=== PATIENT | male | born 1960 | race Caucasian/White ===

== ENCOUNTER 2018-04-01 11:42 | Outpatient (CLI) | payer OTHER | END 2018-04-01 11:43 | disposition home or self-care (01) | LOC: BICRAD 11:42 | PROVIDERS: ATTEND Internal Medicine | DX: Z02.71 Encounter for disability determination (principal); M16.11 Unilateral primary osteoarthritis, right hip ==

== ENCOUNTER 2018-04-23 07:52 | Emergency (ER) | payer OTHER, SELFPAY ==
[2018-04-23] MEDS ORDERED: Diazepam 5 MG TAB ONE (08:39)
[2018-04-23] MEDS ORDERED: Naproxen 500 MG TAB ONE (08:39)
[2018-04-23] MEDS ORDERED: Lidocaine 1% (PF) 30 ML VIAL ONE (09:17)
--- NOTE | 2018-04-23 09:28 | RAD ---
LEFT SHOULDER THREE VIEWS: HISTORY: Shoulder pain. COMPARISON: None. FINDINGS: No acute displaced fracture or malalignment. Mild degenerative disease of the acromioclavicular join t. The soft tissues are unremarkable. IMPRESSION: No acute abnormality. POS: [facility]
== END 2018-04-23 09:56 | disposition home or self-care (01) ==
LOC: ERS 07:52
DX: M25.512 Pain in left shoulder (principal); F17.210 Nicotine dependence, cigarettes, uncomplicated
CPT/HCPCS: 20552; J2001

== ENCOUNTER 2019-01-24 08:35 | Emergency (ER) | payer OTHER ==
[2019-01-24] MEDS ORDERED: Ciprofloxacin 500 MG TAB ONE (10:48)
[2019-01-24] MEDS ORDERED: Ondansetron PF 4 MG/2 ML Vial ONE (10:48)
[2019-01-24] MEDS ORDERED: metroNIDAZOLE 500 MG/100 ML BAG ONE (10:49)
[2019-01-24 10:59] LABS: #Lymphocytes 1.5 thou/uL (1.20-3.40); %Basophils 0.1 % (0.0-1.0); %Eosinophils 0.1 % (0.0-10.0); %Monocytes 13.6 % (0.0-10.0); %Neutrophils 76.1 % (42.0-75.0); Mean Corpuscular HGB CONC 34.4 g/dL (32.0-36.0); Mean Corpuscular Hemoglobin 31.8 pg (27.0-31.0); Mean Corpuscular Volume 92.5 fL (78.0-98.0); Mean Platelet Volume 8.9 fL (7.4-10.4); Platelet Count 148 thou/uL (130-400); RBC Distribution Width 11.9 % (11.5-14.5); Red Blood Cell (RBC) Count 4.72 mill/uL (4.70-6.10); White Blood Cell (WBC) Count 14.5 thou/uL (4.8-10.8)
[2019-01-24 11:26] LABS: ALT (SGPT) 36 U/L (8-55); AST (SGOT) 85 U/L (5-34); Albumin 3.8 g/dL (3.5-5.0); Alkaline Phosphatase 61 U/L (40-150); Anion Gap 12 mmol/L (10-20); BUN (Urea Nitrogen) 8 mg/dL (8.4-25.7); Bilirubin, Total 1.2 mg/dL (0.2-1.2); Calc. Creatinine Clearance 0 mL/min (70-130); Calcium 8.8 mg/dL (7.8-10.44); Carbon Dioxide 25 mmol/L (22-29); Chloride 93 mmol/L (98-107); Estimated GFR-MDRD 72; Globulin 3.5 g/dL (2.4-3.5); Glucose 109 mg/dL (70-105); Lipase 5 U/L (8-78); Potassium 3.8 mmol/L (3.5-5.1); Protein, Total 7.3 g/dL (6.0-8.3); Sodium 126 mmol/L (136-145)
[2019-01-24 12:03] LABS: Blood, Urine Negative (Negative); Clarity CLEAR (Clear); Glucose, Urine (Dipstick) Negative (Negative); Protein, Urine (Dipstick) 100 mg/dL (Neg-Trace); Specific Gravity, Urine 1.028 (1.002-1.036); Urobilinogen > or = 8.0 mg/dL (0.2-1.0); pH, Urine 5.5 (5.0-9.0)
[2019-01-24 12:06] LABS: Pathc Cast-AUWi Flag 1.22 (0-2.49); RBC/HPF 0-3 HPF (0-3); Squamous Epithelial 0-3 HPF (0-3)
[2019-01-24 12:21] LABS: Bilirubin Unable to Interpret (Negative)
[2019-01-24 12:22] LABS: Leukocyte Unable to Interpret (Negative); Nitrite Unable to Interpret (Negative)
[2019-01-24 12:37] LABS: Bacteria/HPF None Seen HPF (None Seen); Hyaline Casts/LPF 0-3 HYALINE CAST LPF (0-3 Hyaline); Other Casts/LPF 0-3 COARSE GRAN LPF (0-3 Hyaline); WBC/HPF 0-3 HPF (0-3)
--- NOTE | 2019-01-24 13:05 | CT ---
CT ABDOMEN AND PELVIS WITH CONTRAST: HISTORY: Abdominal pain, nausea, vomiting, and diarrhea x5 days, which initially resolved and then returned. FINDINGS: ABDOMEN: There are some reticular interstitial changes in the lung bases. This could be on the basi s of scar versus atelectasis. A small hiatal hernia is noted. There is suggestion of some fatty changes in the liver. The spleen is within normal limits. The pancreas region is unremarkable. The gallbladder is somewhat contracte d. The right and left adrenal glands are normal. Small hypodensities involving the right kidney are too small to characterize, but statistically are most likely cysts. No renal calculi are identified. N o significant periaortic or mesenteric adenopathy. No signs of any bowel obstruction. PELVIS: There is no evidence of any adenopathy, mass, or free fluid. Review of the osseous structures show arthritic change of the spine and hips. IMPRESSION: 1. No acute findings of the abdomen or pelvis. 2. Fatty change of the liver. 3. Small hiatal hernia. POS: [facility]
[2019-01-24] MEDS ORDERED: ISOVUE-370 76%-LOCM 1 ML ONE (16:26)
== END 2019-01-24 12:55 | disposition home or self-care (01) ==
LOC: ERS 08:35
DX: R11.2 Nausea with vomiting, unspecified (principal); R19.7 Diarrhea, unspecified; F17.210 Nicotine dependence, cigarettes, uncomplicated
CPT/HCPCS: 36415; 74177; 80053; 81003; 81015; 83690; 85025; 96365; 96366; 96375; J2405; Q9966

== ENCOUNTER 2019-02-09 22:15 | Inpatient (IN) | payer OTHER ==
[~2019-02-09 22:15] MED LIST: ISOVUE-370 76%-LOCM 1 ML ONE
[2019-02-09] MEDS ORDERED: methylPREDNISolone Sod Succ/PF 125 MG/2 ML VIAL ONE (22:29)
[2019-02-09 22:40] LABS: #Basophils 0.1 thou/uL (0.0-0.2); #Lymphocytes 1.6 thou/uL (1.20-3.40); #Monocytes 1.4 thou/uL (0.11-0.59); %Basophils 0.5 % (0.0-1.0); %Eosinophils 0.1 % (0.0-10.0); %Lymphocytes 11.9 % (21.0-51.0); %Monocytes 10.8 % (0.0-10.0); %Neutrophils 76.8 % (42.0-75.0); Hemoglobin 13.8 g/dL (14.0-18.0); Mean Corpuscular HGB CONC 32.5 g/dL (32.0-36.0); Mean Corpuscular Volume 95.4 fL (78.0-98.0); Mean Platelet Volume 8.3 fL (7.4-10.4); Platelet Count 257 thou/uL (130-400); RBC Distribution Width 12.3 % (11.5-14.5); Red Blood Cell (RBC) Count 4.43 mill/uL (4.70-6.10); White Blood Cell (WBC) Count 13.1 thou/uL (4.8-10.8)
[2019-02-09 23:03] LABS: ALT (SGPT) 17 U/L (8-55); AST (SGOT) 19 U/L (5-34); Albumin 3.6 g/dL (3.5-5.0); Alkaline Phosphatase 59 U/L (40-150); Anion Gap 14 mmol/L (10-20); BUN (Urea Nitrogen) 13 mg/dL (8.4-25.7); Bilirubin, Total 0.9 mg/dL (0.2-1.2); CK (CPK) 145 U/L (30-200); Calc. Creatinine Clearance 0 mL/min (70-130); Calcium 8.9 mg/dL (7.8-10.44); Carbon Dioxide 25 mmol/L (22-29); Chloride 94 mmol/L (98-107); Estimated GFR-MDRD 65; Globulin 4.1 g/dL (2.4-3.5); Glucose 109 mg/dL (70-105); Potassium 4.6 mmol/L (3.5-5.1); Protein, Total 7.7 g/dL (6.0-8.3); Sodium 128 mmol/L (136-145)
[2019-02-09 23:38] LABS: CKMB 0.7 ng/mL (0-6.6)
--- NOTE | 2019-02-09 23:39 | CT ---
CT ANGIOGRAM THORAX WITH IV CONTRAST AND 3-D RECONSTRUCTIONS CLINICAL INDICATION: Shortness of breath. COMPARISON: CT abdomen on 01/24/2019 FINDINGS: Pulmonary arteries: No filling defects are seen in the pulmonary arteries to suggest a pulmonary embo gary. Heart: The heart is normal in size, there is a moderate-sized pericardial effusion and the pericardia l effusion has significantly increased in size compared to study on 01/24/2019. Aorta: The aorta is normal in caliber without evidence of an aortic dissection. Lungs: Moderate size bilateral pleural effusions are seen greater on the left. There is consolidation seen at the left lung base likely attributable to passive atelectasis; although, pneumonia cannot be entirely excluded. Few small blebs are seen within the right lung apex. Mediastinum: There is increased number and size of mediastinal lymph nodes. Largest lymph node seen i n the AP window measures approximately 12 mm in short axis dimension with a few superior right paratracheal mediastinal lymph nodes measuring 11 mm and 10 mm in short axis dimension. Increased num mario of prevascular space lymph nodes are also seen. Soft tissue prominence in each hilar region is also likely related to prominent lymph nodes. A large calcified subcarinal lymph node is present. Thyroid gland: Within normal limits where seen. Osseous structures: Mild degenerative changes are seen in the spine. Chest wall: No abnormality visualized. Upper abdomen: Within normal limits for phase of imaging. IMPRESSION: 1. Moderately large pericardial effusion which has increased in size compared to 01/24/2019. 2. Moderately large bilateral pleural effusions greater on the left with associated bibasilar areas o f consolidation also greater on the left which is probably attributable to passive atelectasis. Pneumonia cannot be entirely excluded. 3. Mediastinal and hilar lymphadenopathy. 4. Above findings discussed with Dr. Arteaga in the emergency department on 01/24/2019 at 1136 hours.
[2019-02-10] MEDS ORDERED: Cefepime 2 GM VIAL ONE (00:15)
[2019-02-10] MEDS ORDERED: Vancomycin HCl 1.5 GM in Sodium Chloride 0.9% 250 ML 300 ML IVPB ONE (00:30)
[2019-02-10 01:11] LABS: Critical Call Chem Troponin I RESULT DECREASING; Troponin I 0.436 ng/mL (< 0.028)
[2019-02-10 02:32] VITALS: BMI 32.5
[2019-02-10] MEDS ORDERED: Acetaminophen 325 MG TAB PO PRN (04:19)
[2019-02-10] MEDS ORDERED: Calcium Carbonate 500 MG ChewTAB PO PRN (04:19)
[2019-02-10] MEDS ORDERED: Senokot S 8.6-50 MG TAB PO PRN (04:19)
[2019-02-10] MEDS ORDERED: Ondansetron PF 4 MG/2 ML Vial IVP PRN (04:19)
[2019-02-10] MEDS ORDERED: Ondansetron ODT 4 MG TAB PO PRN (04:19)
[2019-02-10] MEDS ORDERED: Dextrose 5 % And 0.9 % NaCl 1,000 ML IV SCH (04:30)
[2019-02-10] MEDS ORDERED: Vancomycin HCl 1 GM in Premix Bag 1 BAG IVPB SCH (04:30)
[2019-02-10] MEDS ORDERED: cefTRIAXone\\ROCEPHIN 1 GM in Sodium Chloride 0.9% 100 ML IVPB SCH (05:00)
[2019-02-10] MEDS ORDERED: Diabetic Tussin 200 MG/10 ML UDCUP PO PRN (05:23)
[2019-02-10 05:30] LABS: Anion Gap 15 mmol/L (10-20); BUN (Urea Nitrogen) 13 mg/dL (8.4-25.7); CRP (Inflammatory) 19.88 mg/dL (= or < 0.5); Calc. Creatinine Clearance 133 mL/min (70-130); Calcium 8.6 mg/dL (7.8-10.44); Carbon Dioxide 19 mmol/L (22-29); Chloride 97 mmol/L (98-107); Estimated GFR-MDRD 86; Glucose 135 mg/dL (70-105); Potassium 4.5 mmol/L (3.5-5.1); Sodium 126 mmol/L (136-145)
[2019-02-10 05:46] LABS: HIV (1/2) Antibody/Antigen Non-Reactive (NonReactive)
--- NOTE | 2019-02-10 07:04 | HP ---
PRIMARY CARE PHYSICIAN: [facility]. CHIEF COMPLAINT: Shortness of breath. HISTORY OF PRESENT ILLNESS: The patient is a 58-year-old male with hypothyroidism and more than 50 pack-year smoking history, presented to the emergency room with above complaints. Two weeks ago, the patient presented to the emergency room with nausea, vomiting, and diarrhea of [address] scan of the abdomen and pelvis was negative for acute findings. He was discharged home on ciprofloxacin, Flagyl, and Zofran. His symptoms gradually improved. Over the last 2 weeks or so, the patient has gradual worsening shortness of breath that is progressively getting worse. He also has cough that is productive of small amount of thick phlegm. He gets short of breath on lying down flat. He also noticed bilateral lower extremity swelling. He denies any chest pain, palpitations, or syncope. No recent immobilization or travel reported. He denies significant weight loss. He quit smoking a month ago. Nausea, vomiting, and diarrhea have resolved. In the emergency room, his initial vital signs showed temperature 99.3, respirations of 33, pulse rate of 113, blood pressure of 120/83 with O2 saturation of 90% on room air. His EKG showed sinus tachycardia with nonspecific ST-T wave changes in the lateral lead. CT angiogram of the chest showed moderately large pericardial effusion as well as moderately large bilateral pleural effusion with mediastinal and hilar adenopathy. He received vancomycin, cefepime, IV fluids with Solu-Medrol in the emergency room. His CT scan also showed bibasilar consolidation versus atelectasis. PAST MEDICAL HISTORY: 1. Hypothyroidism. 2. Former smoker, quit last month. 3. Recent gastroenteritis, resolved. PAST SURGICAL HISTORY: 1. Right knee replacement. 2. Tonsillectomy. ALLERGIES: NO KNOWN DRUG ALLERGIES. CURRENT HOME MEDICATION: 1. Levothyroxine 25 mcg daily. 2. Tylenol No. 3 as needed. SOCIAL HISTORY: The patient quit smoking last month. He used to smoke 1 to 1-1/2 pack a day for approximately 45 years. He denies current use of alcohol or drug use. He has a history of alcohol abuse in the past. FAMILY HISTORY: Positive for father with IA at the age of 50. REVIEW OF SYSTEMS: The patient denies any focal neurologic deficit, joint pain, or oral ulcers. All other review of systems was reviewed and were found negative. PHYSICAL EXAMINATION: VITAL SIGNS: As discussed above. GENERAL: A 58-year-old male in mild respiratory distress at rest. HEENT: Head atraumatic and normocephalic. Sclerae anicteric. Moist mucous membranes. No oral lesion. NECK: Supple. JVD elevated. No carotid bruit. LUNGS: Showed diffuse rhonchi and wheezing. Diminished air entry at bilateral bases. Scattered rales at bases. HEART: S1, S2 present. Tachycardic. Distant heart sound. No heaves or pulsation. ABDOMEN: Soft, nontender. Bowel sounds present. No rebound or guarding. EXTREMITIES: 2+ edema in bilateral lower extremity. SKIN: Warm and dry. LYMPH NODE: No palpable lymph nodes in the neck. PERIPHERAL VASCULAR: Radial pulses palpable bilaterally. MUSCULOSKELETAL: No joint swelling or tenderness. NEUROLOGIC: Grossly nonfocal. Moves all 4 extremities. Power was 5/5 in all extremities. PSYCHIATRY: Alert, awake, oriented x3. LABORATORY FINDINGS: WBC 14.5, hemoglobin 15, hematocrit 43.6, platelet 148. D-dimer 6.12. Chemistry showed sodium 128, potassium 4.6, chloride 94, bicarb 25, BUN 13, creatinine 1.15, glucose of 109. Troponin 0.492. BNP 260. Serum osmolality 266. Urinalysis was negative for wbc, bacteria. CT angiogram of the chest by my review as discussed above. EKG by my review as discussed above. EKG was low voltage with electrical alternans. IMPRESSION: 1. Respiratory distress secondary to pleural and pericardial effusion. Etiology unclear. Probably related to recent gastroenteritis, questionable viral. Malignancy is also a possibility. We will rule out autoimmune etiology as well as HIV. 2. Type 2 myocardial infarction. 3. Sepsis with acute organ dysfunction secondary to bilateral pneumonia. 4. Hyponatremia, hypotonic. Serum osmolality was 266. 5. Chronic kidney disease, stage 2. 6. Elevated D-dimer. Pulmonary embolism ruled out. 7. Chronic pain syndrome. 8. Hypothyroidism. 9. Mediastinal and hilar adenopathy. 10. Small hiatal hernia. 11. Degenerative joint disease. PLAN: The patient will be monitored in the intermediate care unit. He will be kept n.p.o. Gentle IV hydration while n.p.o. We will consult Cardiology as well as cardiovascular surgeon. We will get urgent echocardiogram. Consult Pulmonary. Recheck labs on a daily basis. Low-dose aspirin. Empiric antibiotics for suspected pneumonia. Continuous pulse oximetry. Nebulizer treatment as needed. Plan of care was discussed with the patient in detail. He stated understanding. Job ID: [id number]
--- NOTE | 2019-02-10 07:57 | RAD ---
PORTABLE AP CHEST XRAY: DATE: 02/09/2019. HISTORY: Worsening shortness of breath and dyspnea on exertion. COMPARISON: 03/13/2016. FINDINGS: The cardiac silhouette is magnified by projection but is enlarged on the current study and larger in size compared to prior exam. There is evidence of bilateral pleural effusions and atelectasis greate r on the left. Calcific density in the subcarinal region is again seen probably related to calcified subcarinal lymph node. Pulmonary vasculature is within normal limits. IMPRESSION: 1. Enlargement of the cardiac silhouette which is larger in size compared to prior exam. 2. Bilateral pleural effusions, larger in size on the left, with associated atelectasis. POS: [facility]
[2019-02-10] MEDS: Aspirin 81 mg Enteric Coated Tablet PO SCH (09:44)
[2019-02-10] MEDS: Famotidine 20 MG TAB PO SCH ×2 (09:44→20:01)
[2019-02-10] MEDS: guaiFENesin ER 600 MG TAB PO SCH ×2 (09:44→20:01)
[2019-02-10] MEDS: Saccharomyces boulardii 250 MG CAP PO SCH (09:44)
[2019-02-10] MEDS ORDERED: Vancomycin HCl 1.5 GM in Sodium Chloride 0.9% 250 ML 300 ML IVPB SCH (13:00)
[2019-02-10] MEDS ORDERED: PROPOFOL 200 MG/20 ML VIAL ONE (13:19)
[2019-02-10] MEDS ORDERED: Lidocaine 1% PF 5 ML VIAL ONE (13:19)
--- NOTE | 2019-02-10 15:05 | CON ---
DATE OF CONSULTATION: 02/10/2019 SERVICE: Pulmonary Medicine. REASON FOR CONSULT: IMCU patient/pleural effusion. HISTORY OF PRESENT ILLNESS: The patient is a 58-year-old white male with past medical history significant for essentially nothing. He was in his usual state of health when he started having onset of shortness of breath and cough. He is bringing up white phlegm. He had a very pale yellow character to it on occasion. It typically has yellow character in the morning. He had a slow progressive increasing dyspnea on exertion over the past 2 weeks associated with orthopnea and paroxysmal nocturnal dyspnea. He specifically denies having any fevers, chest pain, nausea, vomiting, or diarrhea. PAST MEDICAL HISTORY: 1. Hypothyroidism. 2. Recent episode of gastroenteritis. PAST SURGICAL HISTORY: 1. Right knee replacement. 2. Tonsillectomy. ALLERGIES: NO KNOWN DRUG ALLERGIES. MEDICATIONS: List of his inpatient medications were reviewed. I discontinued the IV fluids and all IV antibiotics. We will be giving him Lasix as soon as we prove that he is not in tamponade. FAMILY HISTORY: Noncontributory. SOCIAL HISTORY: Negative for current tobacco, alcohol, or illicit drug use. He quit smoking about a month ago. He has a greater than 11-lsty-otty history of smoking. He denies any illicit drugs. He has no exposure to chemicals, dust, asbestos, or tuberculosis. REVIEW OF SYSTEMS: General; head, ears, eyes, nose, and throat; cardiovascular; respiratory; GI; ; musculoskeletal; neurologic; and skin are negative except as mentioned in the HPI. PHYSICAL EXAMINATION: VITAL SIGNS: Afebrile with a T-max of 99.3, pulse 94, blood pressure 129/86, respirations 22, and saturation 91% on 2 L nasal cannula. GENERAL: The patient is awake and alert, in no apparent distress. LUNGS: Decent air entry. Dependent crackles are present. There is no prolonged expiratory phase or wheezing present. HEART: Normal rate, regular. ABDOMEN: Soft, nontender, and nondistended. Bowel sounds are positive. MUSCULOSKELETAL: No cyanosis or clubbing. There is 2 to 3+ pitting in bilateral lower extremities. NEUROLOGIC: Grossly nonfocal. LABORATORY DATA: WBC 13.1, hemoglobin 13.8, and platelets 257,000. ESR is elevated at 77. D-dimer 6.12. Basic metabolic profile is essentially unremarkable except for sodium of 126. Of note, he had hyponatremia on the 24 of January. BNP 260. CRP 19. Troponin 0.4 and downtrending. TSH 1.1. Magnesium 2.0. Liver function studies are essentially unremarkable. LDH is marginally elevated. HIV-1 and HIV-2 are nonreactive. IMAGING DATA: CTA of the chest demonstrates no evidence of a pulmonary embolism. He has got moderate bilateral pleural effusions, and a very impressive pericardial effusion. In addition to this, he has atelectasis in the left lower lobe. I do not really appreciate significant air bronchograms making me suspicious of pneumonia. He has evidence of pulmonary edema, with interstitial fullness, and layering ground-glass opacifications. ASSESSMENT: 1. Acute hypoxic respiratory failure. 2. Pericardial effusion. 3. Pleural effusions, bilateral. DISCUSSION AND PLAN: Echocardiogram report is currently pending. As soon as we prove he does not have tamponade, we will initiate doses of Lasix. IV fluids and antibiotics will be interrupted as I have a very low suspicion of an infectious process here. I agree with the YOLIE and rheumatoid factor. If tamponade is present, Cardiothoracic Surgery will likely be performing a window at some point during this hospital stay. Pulmonary/Critical Care will continue to follow along. I would like for him to remain in this location until we see the results of that echo. I will get urinalysis and an INR tomorrow morning looking for other things that could cause volume overload states. 70 minutes have been devoted to this patient in various activities. I personally reviewed all imaging studies and laboratory data noted within this document. For fifty percent of this time, I was interacting with the patient at the bedside or coordinating care with the care team. For the remainder of the time I was immediately available to the patient in the hospital unit. Job ID: [id number] [facility]
--- NOTE | 2019-02-10 16:46 | PDOC.PN ---
- Subjective Encounter Start Date: 02/10/19 Encounter Start Time: 16:45 Mr. Brito was seen today in follow-up of Pleural and Pericardial effusions. He notes some dyspnea, not much improved overnight. - Objective Resuscitation Status - Order Detail: 02/10/19 04:19 Resuscitation Status Routine Resuscitation Status: FULL: Full Resuscitation MAR Reviewed: Yes Vital Signs & Weight: Vital Signs (12 hours) Temp Pulse Ox 02/10/19 15:31 97.4 F L 02/10/19 11:31 96.4 F L 02/10/19 07:28 96.9 F L 02/10/19 07:19 97 02/10/19 05:16 95 Weight Weight 233 lb 11.04 oz Most Recent Monitor Data Heart Rate from ECG 94 NIBP 130/86 NIBP BP-Mean 100 Respiration from ECG 24 SpO2 94 I&O: 02/09/19 02/10/19 02/11/19 06:59 06:59 06:59 Intake Total 140 Output Total 220 550 Balance -80 -550 Result Diagrams: 02/09/19 22:26 02/10/19 04:45 Phys Exam - Physical Examination HEENT: PERRLA Respiratory: wheezing present + wheezing and rales bilaterally, and decreased breath sounds at the bases Cardiovascular: RRR, no significant murmur, no rub Gastrointestinal: soft, non-tender, no distention, positive bowel sounds Musculoskeletal: pulses present, edema present Neurological: non-focal, normal sensation, moves all 4 limbs Dx/Plan (1) Pleural effusion, bilateral Code(s): J90 - PLEURAL EFFUSION, NOT ELSEWHERE CLASSIFIED Status: Acute (2) Pericardial effusion Code(s): I31.3 - PERICARDIAL EFFUSION (NONINFLAMMATORY) Status: Acute (3) Hyponatremia Code(s): E87.1 - HYPO-OSMOLALITY AND HYPONATREMIA Status: Acute (4) Hypothyroidism Code(s): E03.9 - HYPOTHYROIDISM, UNSPECIFIED Status: Chronic - Plan * Pleural and Pericardial effusions- ? etiology- agree with screen for Auto- Immune disorders * Hyponatremia- ? etiology- due to volume overload- will check a urine Osmalality and urine sodium to help. * Hypothyroidism- his TSH is normal * I suspect he has some underlying COPD- will continue Duonebs as needed * Further recommendations as per Pulmonary and Cardiology
[2019-02-10] MEDS ORDERED: Bupivacaine HCl 0.5%/Epinephrine 1:200,000/PF 30 ml Vial ONE (16:50)
--- NOTE | 2019-02-10 17:01 | CON ---
DATE OF CONSULTATION: HISTORY OF PRESENT ILLNESS: Ede Brito Junior is a 58-year-old white male, admitted with increasing shortness of breath. He was seen in the emergency room on 01/24 with complaints of nausea, vomiting, and diarrhea. Abdominal and pelvic CT were unremarkable. Then, over the last 2 weeks, he has noted increased dyspnea. He noticed that he would be more dyspneic if he would lie supine, but it was better sitting up. He denied ever having any chest discomfort associated with this. He did notice some lower extremity edema; however, that is not present today on exam. He denies any arthritis or fevers. CT angiogram of the chest showed moderately large pericardial effusion as well as bilateral effusions and mediastinal and hilar adenopathy. In the emergency room, he received vancomycin, cefepime, IV fluids , and Solu-Medrol. At the present time, he states that he feels mildly better. PAST MEDICAL HISTORY: Remarkable for; 1. Hypothyroidism. 2. Recent episode of gastroenteritis. OPERATIONS: 1. Right total knee replacement. 2. Tonsillectomy. MEDICATIONS: 1. Levothyroxine 25 mcg daily. 2. Tylenol No. 3 p.r.n. ALLERGIES: NONE. SOCIAL HISTORY: He smoked 2 packs per day, but states he stopped 1 to 1-1/2 months ago. He denies any alcohol or drug use. FAMILY HISTORY: Father had myocardial infarction at the age of 50. REVIEW OF SYSTEMS: A 10-point review of systems is otherwise unremarkable. PHYSICAL EXAMINATION: VITAL SIGNS: Blood pressure 130/86 and pulse of 94. HEENT: PERRL. NECK: Supple. CHEST: Occasional expiratory wheezing. CARDIOVASCULAR: S1 and S2 were distant. There was no murmur heard. There was no significant jugular venous distention. Blood pressure measurement by nm revealed a pressure of 130/82 with a paradox of 2. ABDOMEN: Normal bowel sounds without tenderness or organomegaly. EXTREMITIES: No clubbing, cyanosis, or edema. NEUROLOGIC: Grossly intact. SKIN: Warm and dry. LABORATORY DATA: EKG revealed sinus tachycardia with a rate of 116 per minute. There was low voltage and nonspecific ST and T-wave changes. Echo revealed study to be technically difficult. There was moderate pericardial effusion. Ejection fraction was 50% to 55% with mild mitral regurgitation and trace tricuspid regurgitation. Hemoglobin 13.8, hematocrit 42.3, white count 13,100, and platelets 257,000. D-dimer 6.12. Sodium 126, potassium 4.5, chloride 97, carbon dioxide 19, BUN 13, and creatinine 0.90. Troponin-I 0.492. BNP of 260.7. TSH is normal. IMPRESSION: 1. Moderate pericardial effusion of uncertain etiology. He does have some hilar adenopathy and this certainly may represent some type of malignant effusion. This also could be due to viral pericarditis, although he has not had any significant chest pain. He denies any history of arthritis or fevers, making connective tissue disease somewhat less likely. 2. Bilateral pleural effusions. 3. Former smoker, stopped 6 weeks ago, 2 packs per day for 45 years. 4. Positive family history. 5. Hypothyroidism. 6. [id number]-[id number] myocardial infarction, type 2. PLAN: Situation was discussed with the patient. He does not have overt tamponade at this time. However, he is tachycardiac and short of breath. The best approach would probably be to place pericardial window to have fluid to analyze as well as pericardium for pathological examination. Dr. Paul Levy has been consulted. Job ID: [id number] [facility]
[2019-02-10] MEDS ORDERED: CEFAZOLIN 2 GM in Premix Bag 1 BAG IVPB SCH (17:20)
[2019-02-10] MEDS ORDERED: Fentanyl 100 MCG/2 ML VIAL ONE ×2 (17:20→18:37)
[2019-02-10] MEDS ORDERED: Ondansetron HCl/PF 4 MG/2 ML Vial IVP PRN (18:35)
[2019-02-10 19:37] LABS: Fluid, Protein 6.1 g/dL (Not Available)
[2019-02-10] MEDS ORDERED: Fentanyl 100 MCG/2 ML VIAL SLOW IVP PRN (19:47)
[2019-02-10] MEDS ORDERED: traMADol HCl 50 MG TAB PO PRN (19:47)
[2019-02-10 19:52] LABS: BF Color Red; Body Fluid Source Pleural Fluid; Clarity Cloudy/Turbid (Clear); Tube # EDTA
[2019-02-10 19:53] LABS: RBC Background Count 0.007; RBC Count-Automated 47000 /cumm; WBC/NonHematic-Auto 720 /cumm
[2019-02-10 20:28] LABS: BF Segmented Neutrophils 35 %; Cell Count Non Hematic 9 %; Lymphocytes 56 %
[2019-02-10 21:48] LABS: Bilirubin Negative (Negative); Blood, Urine Negative (Negative); Clarity CLEAR (Clear); Glucose, Urine (Dipstick) Negative (Negative); Leukocyte Negative (Negative); Nitrite Negative (Negative); Protein, Urine (Dipstick) 30 mg/dL (Neg-Trace); Specific Gravity, Urine 1.021 (1.002-1.036)
[2019-02-10 21:50] LABS: Bacteria/HPF None Seen HPF (None Seen); Hyaline Casts/LPF 7-10 HYALINE CAST LPF (0-3 Hyaline); RBC/HPF 0-3 HPF (0-3); Squamous Epithelial 0-3 HPF (0-3)
[2019-02-10 22:14] LABS: Renal Epithelial None Seen HPF (0-3); Transitional Epithelial NONE SEEN HPF (0-3)
[2019-02-10] MEDS: Ketorolac Tromethamine 30 MG/ML VIAL IVP SCH (23:42)
--- NOTE | 2019-02-10 23:53 | OP ---
DATE OF PROCEDURE: 02/10/2019 PREOPERATIVE DIAGNOSIS: Moderate/large symptomatic pericardial effusion. POSTOPERATIVE DIAGNOSIS: Moderate/large symptomatic pericardial effusion. PROCEDURE PERFORMED: Pericardial window with biopsy. ANESTHESIA: General endotracheal. ESTIMATED BLOOD LOSS: Minimal. FINDINGS: 500 mL of inflammatory type fluid with severe inflammation intrapericardially. DRAINS: 24-Monegasque Herrera drain x1. SPECIMENS: Fluid sent for protein, amylase, cytology, Gram stain, culture, cell count. Pericardial tissue sent for routine pathology. DESCRIPTION OF PROCEDURE: After consent was obtained, the patient was brought to the operating room and placed in supine position on the operating table. Appropriate lines and monitors were placed, and general endotracheal anesthesia was induced. Chest was prepped and draped in usual sterile fashion. The skin incision was made over the xiphoid. The xiphoid was resected. Pericardium was entered sharply and fluid drained. Fluid was sent to above studies. Small piece of pericardium was then sent. Intrapericardially, there was significant amount of inflammatory tissue covering both the diaphragm, epicardium and pericardium. A 24-Monegasque Herrera drain was placed intrapericardially. Wounds were then closed in layers and Dermabond applied to the skin. Wound was injected with 0.5% Marcaine with epinephrine at completion. The patient tolerated the procedure well, awakened, extubated, and transferred to the recovery room in stable condition. Job ID: [id number]
--- NOTE | 2019-02-10 23:53 | CON ---
DATE OF CONSULTATION: 02/10/2019 HISTORY OF PRESENT ILLNESS: Mr. Brito is a 58-year-old gentleman, who has been admitted with increasing levels of shortness of breath. He currently cannot lay supine without feeling like he is smothering. He has not had chest pain. He has had some lower extremity edema. He has had a CT angiogram of the chest, which showed bilateral small pleural effusions with a [id number] pericardial effusion. Echocardiogram has been performed and shown large pericardial effusion. It was difficult to tell if he had tamponade type physiology. I have been asked to see him for pericardial window for diagnostic and therapeutic purposes. PAST MEDICAL HISTORY: Hypothyroidism. PAST SURGICAL HISTORY: 1. Right total knee replacement. 2. Tonsillectomy. CURRENT MEDICATIONS: 1. Synthroid 25 mcg daily. 2. Tylenol 3 p.r.n. ALLERGIES: NONE. SOCIAL HISTORY: He quit smoking approximately 2 months ago, but did smoke up to 2 packs of cigarettes a day at that time. REVIEW OF SYSTEMS: A 10-point review of systems is performed and is negative except as above. PHYSICAL EXAMINATION: GENERAL: This is a well-developed, well-nourished man, resting comfortably in preoperative area. VITAL SIGNS: Height 5 feet 11 inches, weight is 233 pounds, BSA is 2.3, temperature is 97.4, pulse is 98 and regular, and blood pressure is 140/93. HEENT: Sclerae nonicteric. Pupils are equal and round bilaterally. NECK: Supple without carotid bruit. CHEST: Clear bilaterally. HEART: Rhythm is regular. ABDOMEN: Soft and nontender without mass. EXTREMITIES: There is 1+ pitting edema bilaterally. I have reviewed his chest x-ray, which shows a cardiac silhouette which is increased greatly in size from his last chest x-ray in 2017. CT angiogram is as above with no evidence of pulmonary embolism, bilateral pleural effusions, large pericardial effusion. ASSESSMENT AND PLAN: Large pericardial effusion in need of pericardial window for diagnostic and therapeutic purposes. I have discussed the procedure with the patient. He is agreeable to proceed and signed. Job ID: [id number]
[2019-02-11] MEDS: Ketorolac Tromethamine 30 MG/ML VIAL IVP SCH ×4 (05:46→23:36)
--- NOTE | 2019-02-11 08:07 | RAD ---
SINGLE VIEW CHEST: Date: 02/11/19 COMPARISON: 02/09/19. HISTORY: Status post pericardial window for pericardial effusion. FINDINGS: Single view of the chest shows an enlarged but stable cardiomediastinal silhouette. There are bilater al pleural effusions, left greater than right. Increased interstitial lung markings are present. IMPRESSION: Cardiomegaly and bilateral pleural effusions. POS: [facility]
[2019-02-11 08:10] LABS: #Lymphocytes 1.5 thou/uL (1.20-3.40); #Monocytes 0.9 thou/uL (0.11-0.59); #Neutrophils 8.5 thou/uL (1.40-6.50); %Basophils 0.1 % (0.0-1.0); %Eosinophils 0.1 % (0.0-10.0); %Lymphocytes 13.9 % (21.0-51.0); %Neutrophils 77.9 % (42.0-75.0); Hemoglobin 12.8 g/dL (14.0-18.0); Mean Corpuscular Hemoglobin 31.1 pg (27.0-31.0); Mean Corpuscular Volume 94.4 fL (78.0-98.0); Mean Platelet Volume 8.5 fL (7.4-10.4); Platelet Count 224 thou/uL (130-400); White Blood Cell (WBC) Count 10.9 thou/uL (4.8-10.8)
[2019-02-11 08:17] LABS: INR-International Normal Ratio 1.3; Prothrombin Time 16.6 SEC (12.0-14.7)
[2019-02-11 08:34] LABS: ALT (SGPT) 17 U/L (8-55); AST (SGOT) 29 U/L (5-34); Albumin 3.1 g/dL (3.5-5.0); Alkaline Phosphatase 53 U/L (40-150); Anion Gap 11 mmol/L (10-20); BUN (Urea Nitrogen) 18 mg/dL (8.4-25.7); Bilirubin, Total 0.3 mg/dL (0.2-1.2); Calc. Creatinine Clearance 132 mL/min (70-130); Calcium 8.6 mg/dL (7.8-10.44); Carbon Dioxide 24 mmol/L (22-29); Chloride 99 mmol/L (98-107); Estimated GFR-MDRD 85; Globulin 3.8 g/dL (2.4-3.5); Glucose 109 mg/dL (70-105); Magnesium 2.2 mg/dL (1.6-2.6); Potassium 3.9 mmol/L (3.5-5.1); Protein, Total 6.9 g/dL (6.0-8.3); Sodium 130 mmol/L (136-145)
[2019-02-11] MEDS ORDERED: Amiodarone 450 MG in Dextrose 5% in Water 250 ML IVPB SCH (08:45)
--- NOTE | 2019-02-11 09:56 | PRG ---
DATE OF SERVICE: 02/11/2019 SERVICE: Pulmonary Medicine. INTERVAL HISTORY: The patient is doing really well from respiratory standpoint. He got a drain placed yesterday. He did not require any Lasix. He started auto diuresing, his lower extremity swelling has all but resolved at this point. He denies any current fevers, chills, nausea, vomiting, or diarrhea. He went into atrial fibrillation last night, but he is tolerating some Cardizem. His rate is getting under better control. PHYSICAL EXAMINATION: VITAL SIGNS: Afebrile. Pulse 124, blood pressure 114/79, respirations 16, saturation 96% on 2 L nasal cannula. GENERAL: The patient is awake and alert, in no apparent distress. LUNGS: Excellent air entry. There is improved aeration in the bibasilar regions. Less crackles are present. There is a minimally prolonged expiratory phase with some subtle wheezing. HEART: Normal rate and regular. ABDOMEN: Soft, nontender, nondistended. Bowel sounds are positive. MUSCULOSKELETAL: No cyanosis or clubbing. There is trace pitting in the bilateral lower extremities, which is dramatically improved. GENITOURINARY: No Morales catheter in place. NEUROLOGIC: Grossly nonfocal. LABORATORY DATA: WBC 10.9, hemoglobin 12.8, platelets 224,000. INR 1.3. Basic metabolic profile and liver function studies are essentially unremarkable. CRP and sedimentation rate are both quite elevated. Urinalysis is negative for massive proteinuria. Otherwise, it is unremarkable. The body fluid analysis indicates this is a pleural fluid, but it is not. This was a pericardial fluid. It is clearly an exudative effusion with a lymphocyte predominance. HIV 1 and 2 are nonreactive. Blood cultures x2, an AFB smear culture negative to date. IMAGIN. Chest x-ray demonstrates smaller cardiomediastinal silhouette. Bilateral pleural effusions are still present. 2. Echocardiogram shows a technically difficult study with a moderate pericardial effusion, normal ejection fraction. Mitral regurgitation is present. There is trace tricuspid regurgitation. There is no mention of any tamponade physiology. ASSESSMENT: 1. Pericardial effusion, lymphocytic exudate. 2. Acute hypoxic respiratory failure. 3. Pleural effusions, bilateral. DISCUSSION AND PLAN: We will continue supportive measures. We are awaiting some analysis of the fluid to come back. We are also awaiting the YOLIE. I will continue to follow along with serial chest x-rays. If the effusions continue to shrink, I will leave them alone. If on the other hand, one persists, we can consider doing a thoracentesis. I will wean the oxygen through time. Pulmonary/Critical Care will continue to follow along. Job ID: [id number]
[2019-02-11] MEDS: guaiFENesin ER 600 MG TAB PO SCH ×2 (09:57→20:39)
[2019-02-11] MEDS: Saccharomyces boulardii 250 MG CAP PO SCH (09:57)
[2019-02-11] MEDS: Famotidine 20 MG TAB PO SCH ×2 (09:57→20:39)
[2019-02-11] MEDS: Aspirin 81 mg Enteric Coated Tablet PO SCH (09:57)
[2019-02-11] MEDS ORDERED: Amiodarone 150 MG, Admixture Fee 1 EACH in Dextrose 5% in Water 100 ML IVPB SCH (11:15)
[2019-02-11 12:12] LABS: Vancomycin, Trough 1.5 ug/mL
--- NOTE | 2019-02-11 14:56 | PDOC.PN ---
- Subjective Encounter Start Date: 02/11/19 Encounter Start Time: 10:00 Mr. Brito was seen today in follow-up of pericardial and pleural effusions. He says he is breathing much better after the pericardial window was placed. He denies any significant pain. - Objective Resuscitation Status - Order Detail: 02/10/19 04:19 Resuscitation Status Routine Resuscitation Status: FULL: Full Resuscitation MAR Reviewed: Yes Vital Signs & Weight: Vital Signs (12 hours) Temp Pulse Resp Pulse Ox 02/11/19 12:54 109 H 18 92 L 02/11/19 11:24 96.8 F L 02/11/19 08:00 96 02/11/19 07:47 96 02/11/19 07:46 124 H 16 96 02/11/19 07:15 97.3 F L 02/11/19 03:35 97.4 F L Weight Weight 234 lb 14.4 oz Most Recent Monitor Data Heart Rate from ECG 115 NIBP 110/68 NIBP BP-Mean 82 Respiration from ECG 22 SpO2 96 I&O: 02/10/19 02/11/19 02/12/19 06:59 06:59 06:59 Intake Total 140 470 Output Total 220 2260 Balance -80 -1790 Result Diagrams: 02/11/19 07:28 02/11/19 07:28 Phys Exam - Physical Examination HEENT: PERRLA Respiratory: wheezing present + diminished breath sounds at the bases Cardiovascular: RRR, no significant murmur, no rub Gastrointestinal: soft, non-tender, no distention, positive bowel sounds Musculoskeletal: no edema, pulses present Neurological: non-focal, normal sensation, moves all 4 limbs Dx/Plan (1) Pleural effusion, bilateral Code(s): J90 - PLEURAL EFFUSION, NOT ELSEWHERE CLASSIFIED Status: Acute (2) Pericardial effusion Code(s): I31.3 - PERICARDIAL EFFUSION (NONINFLAMMATORY) Status: Acute (3) Hyponatremia Code(s): E87.1 - HYPO-OSMOLALITY AND HYPONATREMIA Status: Acute (4) Hypothyroidism Code(s): E03.9 - HYPOTHYROIDISM, UNSPECIFIED Status: Chronic - Plan * Pericardial effusion- he is s/p pericardial window- fluid has been sent for studies * Pleural effusion- will continue to monitor * Hyponatremia- improving, 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
[2019-02-11 18:36] LABS: ANA Symphony (Qualitative) POSITIVE (Negative); CCP IgG Antibody Less than 0.4 EliAU/mL (<7 Negative); CENP IgG Antibody Less than 0.4 EliAU/mL (<7 Negative); EliA RAS New Method **** NEW METHOD ****; Jo-1 IgG Antibody Less than 0.3 EliAU/mL (<7 Negative); RNP70 IgG Antibody Less than 0.3 EliAU/mL (<7 Negative); Rheumatoid Factor IgA Antibody 9.9 IU/mL (<14 Negative); Rheumatoid Factor IgM Antibody 0.9 IU/mL (<3.5 Negative); Scleroderma-70 IgG Antibody 1.3 EliAU/mL (<7 Negative); Smith D IgG Antibody 3.1 EliAU/mL (<7 Negative); dsDNA IgG Antibody Less than 0.5 IU/mL (<10 Negative)
[2019-02-12] MEDS: Ketorolac Tromethamine 30 MG/ML VIAL IVP SCH ×2 (06:31→13:12)
[2019-02-12 08:47] LABS: Anion Gap 13 mmol/L (10-20); BUN (Urea Nitrogen) 14 mg/dL (8.4-25.7); Calc. Creatinine Clearance 140 mL/min (70-130); Calcium 8.7 mg/dL (7.8-10.44); Carbon Dioxide 26 mmol/L (22-29); Chloride 97 mmol/L (98-107); Estimated GFR-MDRD Greater than 90; Glucose 145 mg/dL (70-105); Potassium 3.8 mmol/L (3.5-5.1); Sodium 132 mmol/L (136-145)
[2019-02-12] MEDS: Aspirin 81 mg Enteric Coated Tablet PO SCH (09:00)
[2019-02-12] MEDS: Saccharomyces boulardii 250 MG CAP PO SCH (09:00)
[2019-02-12] MEDS: Famotidine 20 MG TAB PO SCH ×2 (09:00→22:01)
[2019-02-12] MEDS: guaiFENesin ER 600 MG TAB PO SCH ×2 (09:00→22:01)
--- NOTE | 2019-02-12 10:14 | PRG ---
DATE OF SERVICE: 02/12/2019 SERVICE: Pulmonary Medicine. INTERVAL HISTORY: The patient is doing okay from respiratory standpoint. Breathing comfortably. He has no complaints of shortness of breath, fevers, or chills. He has been increasing his exercise tolerance dramatically over the last 2 days. He is not having any orthopnea or paroxysmal nocturnal dyspnea at this point. PHYSICAL EXAMINATION: VITAL SIGNS: Afebrile, pulse 92, blood pressure 127/85, respirations 16, and saturation 97% on 2L nasal cannula. GENERAL: The patient is awake and alert, in no apparent distress. LUNGS: Decent air entry. There is a little dullness to percussion in the bibasilar regions. No prolonged expiratory phase present. Crackles are improving. HEART: Normal rate. Regular. ABDOMEN: Soft, nontender, and nondistended. Bowel sounds are positive. MUSCULOSKELETAL: No cyanosis or clubbing. No pitting in the bilateral lower extremities. NEUROLOGIC: Grossly nonfocal. LABORATORY DATA: Sodium continues to improve to 132. Creatinine 0.86 and downtrending. Basic metabolic profile is otherwise unremarkable. Blood cultures x2 remain negative. AFB smear and culture are also negative of the pericardial fluid. Cytology is currently pending. ASSESSMENT: 1. Pericardial effusion, lymphocytic exudate. 2. Acute hypoxic respiratory failure, resolved. 3. Bilateral pleural effusions. DISCUSSION AND PLAN: I will repeat a chest x-ray tomorrow. If the pleural effusions are getting smaller, we will leave him alone. If one side persists, we will pursue a thoracentesis. YOLIE testing is currently pending. Pulmonary/Critical Care will continue to follow along for now. Job ID: [id number]
--- NOTE | 2019-02-12 17:04 | PDOC.PN ---
- Subjective Encounter Start Date: 02/12/19 Encounter Start Time: 14:30 Mr. Brito was seen today in follow-up of pericardial and pleural effusions. He is breathing much better. He denies any chest pain. - Objective Resuscitation Status - Order Detail: 02/10/19 04:19 Resuscitation Status Routine Resuscitation Status: FULL: Full Resuscitation MAR Reviewed: Yes Vital Signs & Weight: Vital Signs (12 hours) Temp Pulse Resp BP BP Pulse Ox 02/12/19 15:00 98.4 F 93 18 132/78 94 L 02/12/19 13:02 96 02/12/19 13:01 96 16 96 02/12/19 11:00 97.5 F L 85 18 131/76 96 02/12/19 08:37 97 02/12/19 08:00 92 16 93 L 02/12/19 07:00 98.0 F Weight Weight 235 lb 14.4 oz Most Recent Monitor Data Heart Rate from ECG 81 NIBP 127/85 NIBP BP-Mean 99 Respiration from ECG 21 SpO2 93 I&O: 02/11/19 02/12/19 02/13/19 06:59 06:59 06:59 Intake Total 470 2020 Output Total 2310 1390 Balance -1840 630 Result Diagrams: 02/11/19 07:28 02/12/19 08:16 Phys Exam - Physical Examination HEENT: PERRLA Respiratory: no rales, no rhonchi, wheezing present Bilateral wheezing which has improved Cardiovascular: RRR, no significant murmur, no rub Gastrointestinal: soft, non-tender, no distention, positive bowel sounds Musculoskeletal: pulses present trace pedal edema bilaterally Neurological: non-focal, normal sensation, moves all 4 limbs Dx/Plan (1) Pleural effusion, bilateral Code(s): J90 - PLEURAL EFFUSION, NOT ELSEWHERE CLASSIFIED Status: Acute (2) Pericardial effusion Code(s): I31.3 - PERICARDIAL EFFUSION (NONINFLAMMATORY) Status: Acute (3) Hyponatremia Code(s): E87.1 - HYPO-OSMOLALITY AND HYPONATREMIA Status: Acute (4) Hypothyroidism Code(s): E03.9 - HYPOTHYROIDISM, UNSPECIFIED Status: Chronic - Plan * Pericardial effusion- immunology studies noted. He has an elevated YOLIE, with elevation of the Anti SS-B and SS-A. However the Anti DS-DNA is essentially negative- This is consistent with Sjorgren's syndrome. Would expect some type of overlap syndrome such as with Lupus or RA, but this does not appear grossly apparent. I would recommend Rheumatology work-up. This may need to be done outpatient. Consider Steroids if his cultures are negative. * Pleural Effusion- this may be due to the same process- discussed with Dr. Craig- thorocentesis is still being contemplated * Hyponatremia- continues to improve * Hypothyroidism- stable
[2019-02-12] MEDS: Indomethacin 25 mg Capsule PO SCH (22:01)
[2019-02-12] MEDS: Amiodarone 200 MG TAB PO SCH (22:01)
--- NOTE | 2019-02-13 08:54 | RAD ---
Exam: Chest 2 views: HISTORY: Follow-up pleural effusions COMPARISON: 02/11/2019 Moderate left and small right pleural effusions are again noted. Heart size is somewhat obscured but appears within normal limits. Old granulomatous disease. Visualized lung zones are clear. IMPRESSION: Bilateral pleural effusions greater on the left side. Old granulomatous disease. Continued short-term follow-up for clearing or stability.
[2019-02-13] MEDS: Aspirin 81 mg Enteric Coated Tablet PO SCH (09:05)
[2019-02-13] MEDS: Saccharomyces boulardii 250 MG CAP PO SCH (09:05)
[2019-02-13] MEDS: Amiodarone 200 MG TAB PO SCH ×2 (09:05→20:26)
[2019-02-13] MEDS: guaiFENesin ER 600 MG TAB PO SCH ×2 (09:05→20:26)
[2019-02-13] MEDS: Indomethacin 25 mg Capsule PO SCH ×2 (09:05→20:26)
[2019-02-13] MEDS: Famotidine 20 MG TAB PO SCH ×2 (09:05→20:25)
--- NOTE | 2019-02-13 10:03 | PRG ---
DATE OF SERVICE: 02/13/2019 SERVICE: Pulmonary Medicine. INTERVAL HISTORY: The patient is doing well from respiratory standpoint. He denies any current shortness of breath or chest discomfort. Otherwise, there has been no real interval change to his condition. YOLIE came back as positive yesterday. Interestingly, he had an SSA/SSB profile. Lower extremity edema has resolved. He denies any overnight events or fevers. PHYSICAL EXAMINATION: VITAL SIGNS: Afebrile. Pulse 98, blood pressure 125/84, respirations 20, and saturations 94% on room air. GENERAL: The patient is awake and alert, in no apparent distress. LUNGS: Decent air entry. No crackles are present. No prolonged expiratory phase is appreciated. HEART: Normal rate, regular. ABDOMEN: Soft, nontender, and nondistended. Bowel sounds are positive. MUSCULOSKELETAL: No cyanosis or clubbing. No pitting in the bilateral lower extremities. NEUROLOGIC: Grossly nonfocal. LABORATORY DATA: YOLIE is positive. The SSA and SSB are strongly positive. HIV is nonreactive. Rheumatoid factor was unremarkable. Blood cultures x2 and body fluid culture are negative to date. IMAGING: Chest x-ray demonstrates persistent bilateral effusion, greater on the left. The edema has improved. ASSESSMENT: 1. Pericardial effusion, lymphocytic exudate. 2. Bilateral pleural effusions, persisting despite the fact that the rest of his body has returned to euvolemia. 3. Acute hypoxic respiratory failure, resolved. DISCUSSION AND PLAN: I am going to proceed with a thoracentesis for diagnostic purposes. The truth be told, SSA or SSB only very seldom causes pleural effusions. In order to exclude the possibility of other things, we will move forward with a sample of the left space. After I collect a sample, empiric steroids for connective tissue process should be considered. Pulmonary Critical Care will continue to follow along. Job ID: [id number]
[2019-02-13 10:28] LABS: BF Color Yellow; Body Fluid Source Thoracentesis Fluid; Clarity Hazy (Clear); RBC Background Count 0.006; Tube # EDTA; WBC Background Count 0.01; WBC/NonHematic-Auto 663 /cumm
[2019-02-13 10:34] LABS: Fluid, Triglycerides 27 mg/dL (Not Available); Pleural Fluid, Amylase Less than 30 U/L (Not Available); Pleural Fluid, Glucose 102 mg/dL; Pleural Fluid, LDH 153 U/L (Not Available); Pleural Fluid, Protein 3.5 g/dL
[2019-02-13 12:06] LABS: BF RBC Count - Manual 2200 /cumm
[2019-02-13 12:31] LABS: BF Segmented Neutrophils 9 %; Cell Count Non Hematic 56 %; Lymphocytes 35 %
[2019-02-13] MEDS ORDERED: Acetaminophen/Codeine 30-300mg Tablet PO PRN (18:22)
--- NOTE | 2019-02-13 18:26 | PDOC.PN ---
- Subjective Encounter Start Date: 02/13/19 Encounter Start Time: 17:30 Patient seen and examined for Serositis. No CP. s/p thoracentesis. No new complaints. No overnight events - Objective Resuscitation Status - Order Detail: 02/10/19 04:19 Resuscitation Status Routine Resuscitation Status: FULL: Full Resuscitation MAR Reviewed: Yes Vital Signs & Weight: Vital Signs (12 hours) Temp Pulse Resp BP Pulse Ox 02/13/19 14:20 98.5 F 92 20 141/81 H 91 L 02/13/19 13:16 93 16 96 02/13/19 08:05 98.2 F 98 20 125/84 94 L Weight Weight 236 lb 7 oz Most Recent Monitor Data Heart Rate from ECG 81 NIBP 127/85 NIBP BP-Mean 99 Respiration from ECG 21 SpO2 93 I&O: 02/12/19 02/13/19 02/14/19 06:59 06:59 06:59 Intake Total 2019 2682 Output Total 1390 3010 Balance 630 -328 Result Diagrams: 02/11/19 07:28 02/12/19 08:16 Additional Labs: Laboratory Tests 02/10/19 04:45 Rheumatoid Factor IgA 9.9 Rheumatoid Factor IgM 0.9 Cycl Citrul Peptide IgG Less than 0.4 YOLIE Screen POSITIVE H YOLIE Scrn Qualitative POSITIVE H SS-A/Ro IgG Antibody 142.0 H SS-B/La IgG Antibody 28.0 H Anti-ds DNA IgG Ab Less than 0.5 EKG Reviewed by me: Yes (Tele SR) Phys Exam - Physical Examination Constitutional: NAD Respiratory: no wheezing Dim AE at bases B/L with scat rhonchi Cardiovascular: RRR, no rub Gastrointestinal: soft, non-tender, positive bowel sounds Musculoskeletal: no edema Neurological: moves all 4 limbs Dx/Plan - Plan DVT proph w/SCDs IMPRESSION: Respiratory distress Pericardial effusion s/p Pericardial window B/L Pleural effusion s/p thoracentesis New onset Afib with RVR - in SR - on Amiodarone loading Type 2 myocardial infarction. SIRS due to Pericardial/Pleural effusions (Pneumonia ruled out) Hyponatremia, hypotonic - improving Chronic kidney disease, stage 2. Chronic pain syndrome. Hypothyroidism. Mediastinal and hilar adenopathy. Small hiatal hernia. Degenerative joint disease. Former smoker Obesity BMI 33 PLAN: s/p thoracentesis today - Await fluid analysis AM labs Resume home meds Cont Amiodarone per Cardiology Cont other meds as below Ambulate Review of Systems - Review of Systems Respiratory: negative: Cough, Dry, Shortness of Breath, Hemoptysis, SOB with Excertion, Pleuritic Pain, Sputum, Wheezing Cardiovascular: negative: chest pain, palpitations, orthopnea, paroxysmal nocturnal dyspnea, edema, light headedness, other Gastrointestinal: negative: Nausea, Vomiting, Abdominal Pain, Diarrhea, Constipation, Melena, Hematochezia, Other - Medications/Allergies Allergies/Adverse Reactions: Allergies Allergy/AdvReac Type Severity Reaction Status Date / Time No Known Allergies Allergy Verified 02/10/19 02:30 Medications: Current Medications Acetaminophen (Tylenol) 650 mg PO Q4H PRN PRN Reason: Headache/Fever/Mild Pain (1-3) Acetaminophen/Codeine Phosphate (Tylenol #3) 1 tab PO Q6HR PRN PRN Reason: Pain Albuterol/Ipratropium (Duoneb) 3 ml NEB [id number] PRN PRN Reason: SOB &/or Wheezing Last Admin: 02/10/19 19:11 Dose: 3 ml Albuterol/Ipratropium (Duoneb) 3 ml NEB [id number] [facility] Last Admin: 02/13/19 13:16 Dose: 3 ml Amiodarone HCl (Cordarone) [address] [facility] Last Admin: 02/13/19 09:05 Dose: 400 mg Aspirin (Ecotrin) [address] [facility] Last Admin: 02/13/19 09:05 Dose: 81 mg Calcium Carbonate (Tums) 1,000 mg PO Q4H PRN PRN Reason: Heartburn or Indigestion Famotidine (Pepcid) [address] [facility] Last Admin: 02/13/19 09:05 Dose: 20 mg Fentanyl (Sublimaze) 50 mcg SLOW IVP Q6HR PRN PRN Reason: Severe Pain (7-10) Guaifenesin (Mucinex) [address] [facility] Last Admin: 02/13/19 09:05 Dose: 600 mg Guaifenesin (Robitussin Sf) 200 mg PO Q4H PRN PRN Reason: Cough Last Admin: 02/11/19 03:53 Dose: 200 mg Indomethacin (Indocin) [address] [facility] Last Admin: 02/13/19 09:05 Dose: 25 mg Levothyroxine Sodium (Synthroid) [address] [facility] Ondansetron HCl (Zofran Odt) 4 mg PO Q6H PRN PRN Reason: Nausea/Vomiting Ondansetron HCl (Zofran) 4 mg IVP Q6H PRN PRN Reason: Nausea/Vomiting Saccharomyces Boulardii (Florastor) [address] [facility] Last Admin: 02/13/19 09:05 Dose: 250 mg Senna/Docusate Sodium (Senokot S) 2 tab PO BID PRN PRN Reason: Constipation Sodium Chloride (Flush - Normal Saline) [address] [facility] Last Admin: 02/13/19 09:06 Dose: 10 ml Sodium Chloride (Flush - Normal Saline) 10 ml IVF PRN PRN PRN Reason: Saline Flush Tramadol HCl (Ultram) 50 mg PO Q6H PRN PRN Reason: Moderate Pain (4-6)
[2019-02-14] MEDS: Levothyroxine Sodium 25 MCG TAB PO SCH (05:08)
[2019-02-14 06:19] LABS: #Eosinphils 0.2 thou/uL (0.0-0.7); #Lymphocytes 1.2 thou/uL (1.20-3.40); #Monocytes 0.8 thou/uL (0.11-0.59); #Neutrophils 5.2 thou/uL (1.40-6.50); %Basophils 0.3 % (0.0-1.0); %Eosinophils 2.3 % (0.0-10.0); %Lymphocytes 16.5 % (21.0-51.0); %Monocytes 10.1 % (0.0-10.0); %Neutrophils 70.7 % (42.0-75.0); Hemoglobin 12.5 g/dL (14.0-18.0); Mean Corpuscular HGB CONC 32.6 g/dL (32.0-36.0); Mean Corpuscular Hemoglobin 30.7 pg (27.0-31.0); Mean Corpuscular Volume 94.2 fL (78.0-98.0); Platelet Count 237 thou/uL (130-400); RBC Distribution Width 12.1 % (11.5-14.5); Red Blood Cell (RBC) Count 4.06 mill/uL (4.70-6.10); White Blood Cell (WBC) Count 7.4 thou/uL (4.8-10.8)
[2019-02-14 06:50] LABS: Anion Gap 12 mmol/L (10-20); BUN (Urea Nitrogen) 7 mg/dL (8.4-25.7); Calc. Creatinine Clearance 151 mL/min (70-130); Calcium 8.7 mg/dL (7.8-10.44); Carbon Dioxide 24 mmol/L (22-29); Chloride 103 mmol/L (98-107); Estimated GFR-MDRD Greater than 90; Glucose 87 mg/dL (70-105); Potassium 4.1 mmol/L (3.5-5.1); Sodium 135 mmol/L (136-145)
[2019-02-14] MEDS: Indomethacin 25 mg Capsule PO SCH ×2 (08:15→20:43)
[2019-02-14] MEDS: Aspirin 81 mg Enteric Coated Tablet PO SCH (08:15)
[2019-02-14] MEDS ORDERED: predniSONE 20 MG TAB PO SCH (08:15)
[2019-02-14] MEDS: Famotidine 20 MG TAB PO SCH ×2 (08:15→20:43)
[2019-02-14] MEDS: Amiodarone 200 MG TAB PO SCH ×2 (08:15→20:42)
[2019-02-14] MEDS: guaiFENesin ER 600 MG TAB PO SCH (08:15)
[2019-02-14] MEDS: Saccharomyces boulardii 250 MG CAP PO SCH (08:15)
--- NOTE | 2019-02-14 08:29 | OP ---
DATE OF PROCEDURE: 02/13/2019 SERVICE: Pulmonary Medicine. PROCEDURE PERFORMED: Left-sided thoracentesis. CONSENT: Risks and benefits of the procedure were discussed with the patient at bedside. All questions were answered and alternative options explained. MEDICATIONS: Lidocaine 1%, total quantity 10 mL. PREOPERATIVE DIAGNOSIS: Pleural effusion. POSTOPERATIVE DIAGNOSIS: Pleural effusion. DESCRIPTION OF PROCEDURE: Time-out was performed by the procedure team and the patient. The patient was positively identified using name and date of . The procedure site was marked. Vital sign monitoring was accomplished by noninvasive hemodynamic monitoring, pulse oximetry, and telemetry. In the seated position, the left posterior or hemithorax was examined using ultrasound probe. The diaphragm and pleural fluid were easily identified. The skin was prepped and draped in sterile fashion and anesthetized with 1% lidocaine without epinephrine. A finder needle was inserted into the pleural space with return of cloudy yellow pleural fluid. Pleural drainage catheter was inserted in the same location and a total quantity of 1500 mL of pleural fluid was withdrawn by syringe pump technique. A sample was sent for analysis. Evacuation of fluid was terminated because we arrived at -22 cm of pleural pressure. The intact catheter was withdrawn on exhalation and a sterile dressing was applied. The patient had stable vitals throughout the entire procedure. ESTIMATED BLOOD LOSS: Less than 1 mL. COMPLICATIONS: Transient shortness of breath, which resolved within 30 seconds. Job ID: [id number] [facility]
[2019-02-14] MEDS ORDERED: Furosemide 20 MG/2 ML VIAL SLOW IVP SCH (10:00)
--- NOTE | 2019-02-14 10:08 | PRG ---
DATE OF SERVICE: 02/14/2019 SERVICE: Pulmonary Medicine. INTERVAL HISTORY: The patient is doing fine from respiratory standpoint. He is breathing comfortably. He has been completely ambulatory. His shortness of breath has essentially returned to baseline. He is coughing a little bit, but not a liberate any sputum this morning. He denies any fevers or chills or other overnight events. PHYSICAL EXAMINATION: VITAL SIGNS: Afebrile. Pulse 86, blood pressure 123/82, respirations 18, and saturation 95% on room air. GENERAL: The patient is awake and alert, in no apparent distress. LUNGS: Decent air entry. There is much improved air entry on the left base. No prolonged expiratory phase or wheezing is appreciated. The right side has slightly decreased air entry, and minimal crackles present. HEART: Normal rate, regular. ABDOMEN: Soft, nontender, and nondistended. Bowel sounds are positive. MUSCULOSKELETAL: No cyanosis or clubbing. No pitting in the bilateral lower extremities. NEUROLOGIC: Grossly nonfocal. LABORATORY DATA: WBC 7.4, hemoglobin 12.5, platelets 237,000. Sodium 135 and improving. Basic metabolic profile is otherwise unremarkable. LDH is 171, downtrending from 236. Fluid analysis shows a non-white cell predominant, very weak exudate with a pleural LDH of 153. ASSESSMENT: 1. Acute hypoxic respiratory failure, resolved. 2. Pericardial effusion demonstrating a very strong lymphocytic exudate. 3. Bilateral pleural effusions, status post thoracentesis on the left demonstrating a very weak exudate, pathology pending. DISCUSSION AND PLAN: I will initiate empiric steroids for connective tissue process. Pulmonary/Critical Care will continue to follow along while the patient remains inhouse. I will give him a single dose of Lasix this morning. From purely respiratory perspective, the patient is stable for transition out of the hospital, provided that he has close followup with Rheumatology. This may prove challenging, given his social issues. I will continue to follow intermittently while the patient remains inhouse. Job ID: [id number]
--- NOTE | 2019-02-14 15:29 | PDOC.PN ---
- Subjective Encounter Start Date: 02/14/19 Encounter Start Time: 14:00 Patient seen and examined for resp distress. Feels better. No CP. No new complaints. No overnight events - Objective Resuscitation Status - Order Detail: 02/10/19 04:19 Resuscitation Status Routine Resuscitation Status: FULL: Full Resuscitation MAR Reviewed: Yes Vital Signs & Weight: Vital Signs (12 hours) Temp Pulse Resp BP BP Pulse Ox 02/14/19 13:42 88 16 02/14/19 12:13 88 16 146/96 H 93 L 02/14/19 08:15 95 02/14/19 07:42 98.0 F 86 18 123/82 95 02/14/19 03:50 97.8 F 81 18 110/64 95 Weight Weight 228 lb 6.4 oz Most Recent Monitor Data Heart Rate from ECG 81 NIBP 127/85 NIBP BP-Mean 99 Respiration from ECG 21 SpO2 93 I&O: 02/13/19 02/14/19 02/15/19 06:59 06:59 06:59 Intake Total 2682 2400 Output Total 3010 400 Balance -328 1999 Result Diagrams: 02/14/19 05:54 02/14/19 05:54 EKG Reviewed by me: Yes (Tele SR) Phys Exam - Physical Examination Constitutional: NAD Respiratory: no wheezing, no rhonchi Dec AE at bases Cardiovascular: RRR, no rub Gastrointestinal: soft, positive bowel sounds Musculoskeletal: no edema Neurological: moves all 4 limbs Dx/Plan - Plan DVT proph w/SCDs IMPRESSION: Respiratory distress Pericardial effusion s/p Pericardial window B/L Pleural effusion s/p thoracentesis New onset Afib with RVR -> SR - on POAmiodarone loading Type 2 myocardial infarction. SIRS due to Pericardial/Pleural effusions (Pneumonia ruled out) Hyponatremia, hypotonic - improving Chronic kidney disease, stage 2. Chronic pain syndrome. Hypothyroidism. Mediastinal and hilar adenopathy. Small hiatal hernia. Degenerative joint disease. Former smoker Obesity BMI 33 PLAN: Started on Prednisone DC Mucinex Cont to monitor Cont Amiodarone per Cardiology Cont current meds as below Ambulate DC home when ok with consultants Review of Systems - Review of Systems Respiratory: SOB with Excertion. negative: Cough, Dry, Shortness of Breath, Hemoptysis, Pleuritic Pain, Sputum, Wheezing Cardiovascular: negative: chest pain, palpitations, orthopnea, paroxysmal nocturnal dyspnea, edema, light headedness, other - Medications/Allergies Allergies/Adverse Reactions: Allergies Allergy/AdvReac Type Severity Reaction Status Date / Time No Known Allergies Allergy Verified 02/10/19 02:30 Medications: Current Medications Acetaminophen (Tylenol) 650 mg PO Q4H PRN PRN Reason: Headache/Fever/Mild Pain (1-3) Last Admin: 02/13/19 20:40 Dose: 650 mg Acetaminophen/Codeine Phosphate (Tylenol #3) 1 tab PO Q6HR PRN PRN Reason: Pain Albuterol/Ipratropium (Duoneb) 3 ml NEB [id number] PRN PRN Reason: SOB &/or Wheezing Last Admin: 02/10/19 19:11 Dose: 3 ml Albuterol/Ipratropium (Duoneb) 3 ml NEB [id number] [facility] Last Admin: 02/14/19 13:42 Dose: 3 ml Amiodarone HCl (Cordarone) 400 mg PO BID [facility] Last Admin: 02/14/19 08:15 Dose: 400 mg Aspirin (Ecotrin) 81 mg PO DAILY [facility] Last Admin: 02/14/19 08:15 Dose: 81 mg Calcium Carbonate (Tums) 1,000 mg PO Q4H PRN PRN Reason: Heartburn or Indigestion Famotidine (Pepcid) 20 mg PO BID [facility] Last Admin: 02/14/19 08:15 Dose: 20 mg Fentanyl (Sublimaze) 50 mcg SLOW IVP Q6HR PRN PRN Reason: Severe Pain (7-10) Guaifenesin (Mucinex) 600 mg PO Q12HR [facility] Last Admin: 02/14/19 08:15 Dose: 600 mg Guaifenesin (Robitussin Sf) 200 mg PO Q4H PRN PRN Reason: Cough Last Admin: 02/11/19 03:53 Dose: 200 mg Indomethacin (Indocin) 25 mg PO BID [facility] Last Admin: 02/14/19 08:15 Dose: 25 mg Levothyroxine Sodium (Synthroid) 25 mcg PO 0600 [facility] Last Admin: 02/14/19 05:08 Dose: 25 mcg Ondansetron HCl (Zofran Odt) 4 mg PO Q6H PRN PRN Reason: Nausea/Vomiting Ondansetron HCl (Zofran) 4 mg IVP Q6H PRN PRN Reason: Nausea/Vomiting Prednisone (Prednisone) 40 mg PO QAM-[facility] Saccharomyces Boulardii (Florastor) 250 mg PO DAILY [facility] Last Admin: 02/14/19 08:15 Dose: 250 mg Senna/Docusate Sodium (Senokot S) 2 tab PO BID PRN PRN Reason: Constipation Sodium Chloride (Flush - Normal Saline) 10 ml IVF Q12HR [facility] Last Admin: 02/14/19 08:16 Dose: 10 ml Sodium Chloride (Flush - Normal Saline) 10 ml IVF PRN PRN PRN Reason: Saline Flush Tramadol HCl (Ultram) 50 mg PO Q6H PRN PRN Reason: Moderate Pain (4-6)
[2019-02-15] MEDS: Levothyroxine Sodium 25 MCG TAB PO SCH (05:38)
[2019-02-15] MEDS: Saccharomyces boulardii 250 MG CAP PO SCH (08:11)
[2019-02-15] MEDS: Aspirin 81 mg Enteric Coated Tablet PO SCH (08:11)
[2019-02-15] MEDS: Amiodarone 200 MG TAB PO SCH ×2 (08:11→20:26)
[2019-02-15] MEDS: Indomethacin 25 mg Capsule PO SCH ×2 (08:13→20:26)
[2019-02-15] MEDS: predniSONE 20 MG TAB PO SCH (08:14)
[2019-02-15] MEDS: Famotidine 20 MG TAB PO SCH ×2 (08:15→20:28)
--- NOTE | 2019-02-15 22:53 | PDOC.PN ---
- Subjective Encounter Start Date: 02/15/19 Encounter Start Time: 09:00 Patient seen and examined for effusions (pleural and pericardial). No new complaints. No overnight events - Objective Resuscitation Status - Order Detail: 02/10/19 04:19 Resuscitation Status Routine Resuscitation Status: FULL: Full Resuscitation MAR Reviewed: Yes Vital Signs & Weight: Vital Signs (12 hours) Temp Pulse Resp BP BP Pulse Ox 02/15/19 19:27 98.2 F 91 18 146/85 H 98 02/15/19 18:28 79 16 99 02/15/19 16:06 97.8 F 76 16 149/81 H 97 02/15/19 14:01 79 16 02/15/19 12:08 97.6 F 79 17 133/82 97 Weight Weight 226 lb 14.4 oz Most Recent Monitor Data Heart Rate from ECG 81 NIBP 127/85 NIBP BP-Mean 99 Respiration from ECG 21 SpO2 93 I&O: 02/14/19 02/15/19 02/16/19 06:59 06:59 06:59 Intake Total 2400 5160 2280 Output Total 400 1350 600 Balance 2000 3810 1680 Result Diagrams: 02/14/19 05:54 02/14/19 05:54 EKG Reviewed by me: Yes (Tele SR) Phys Exam - Physical Examination Constitutional: NAD Respiratory: no wheezing, no rhonchi minimal drainage from Pericardial window Cardiovascular: RRR, no rub Gastrointestinal: soft, non-tender, positive bowel sounds Musculoskeletal: no edema Neurological: moves all 4 limbs Dx/Plan - Plan DVT proph w/SCDs IMPRESSION: Respiratory distress - improving Pericardial effusion s/p Pericardial window B/L Pleural effusion s/p thoracentesis New onset Afib with RVR -> SR - on PO Amiodarone loading Type 2 myocardial infarction. SIRS due to Pericardial/Pleural effusions (Pneumonia ruled out) Hyponatremia, hypotonic - improving Chronic kidney disease, stage 2. Chronic pain syndrome. Hypothyroidism. Mediastinal and hilar adenopathy. Small hiatal hernia. Degenerative joint disease. Former smoker Obesity BMI 33 PLAN: On Prednisone Cont Amiodarone per Cardiology (400 mg BID x 2 weeks then 200 mg BID x 2 weeks then STOP) Cont current meds as below Ambulate DC home when ok with consultants Review of Systems - Review of Systems Respiratory: negative: Cough, Dry, Shortness of Breath, Hemoptysis, SOB with Excertion, Pleuritic Pain, Sputum, Wheezing Cardiovascular: negative: chest pain, palpitations, orthopnea, paroxysmal nocturnal dyspnea, edema, light headedness, other - Medications/Allergies Allergies/Adverse Reactions: Allergies Allergy/AdvReac Type Severity Reaction Status Date / Time No Known Allergies Allergy Verified 02/10/19 02:30 Medications: Current Medications Acetaminophen (Tylenol) 650 mg PO Q4H PRN PRN Reason: Headache/Fever/Mild Pain (1-3) Last Admin: 02/13/19 20:40 Dose: 650 mg Acetaminophen/Codeine Phosphate (Tylenol #3) 1 tab PO Q6HR PRN PRN Reason: Pain Albuterol/Ipratropium (Duoneb) 3 ml NEB Q9AI-GB PRN PRN Reason: SOB &/or Wheezing Last Admin: 02/10/19 19:11 Dose: 3 ml Albuterol/Ipratropium (Duoneb) 3 ml NEB [id number] [facility] Last Admin: 02/15/19 18:28 Dose: 3 ml Amiodarone HCl (Cordarone) [address] [facility] Last Admin: 02/15/19 20:26 Dose: 400 mg Aspirin (Ecotrin) [address] [facility] Last Admin: 02/15/19 08:11 Dose: 81 mg Calcium Carbonate (Tums) 1,000 mg PO Q4H PRN PRN Reason: Heartburn or Indigestion Famotidine (Pepcid) [address] [facility] Last Admin: 02/15/19 20:28 Dose: 20 mg Fentanyl (Sublimaze) 50 mcg SLOW IVP Q6HR PRN PRN Reason: Severe Pain (7-10) Guaifenesin (Robitussin Sf) 200 mg PO Q4H PRN PRN Reason: Cough Last Admin: 02/11/19 03:53 Dose: 200 mg Indomethacin (Indocin) [address] [facility] Last Admin: 02/15/19 20:26 Dose: 25 mg Levothyroxine Sodium (Synthroid) [address] [facility] Last Admin: 02/15/19 05:38 Dose: 25 mcg Ondansetron HCl (Zofran Odt) 4 mg PO Q6H PRN PRN Reason: Nausea/Vomiting Ondansetron HCl (Zofran) 4 mg IVP Q6H PRN PRN Reason: Nausea/Vomiting Prednisone (Prednisone) 40 mg PO QAM-WM [facility] Last Admin: 02/15/19 08:14 Dose: 40 mg Saccharomyces Boulardii (Florastor) [address] [facility] Last Admin: 02/15/19 08:11 Dose: 250 mg Senna/Docusate Sodium (Senokot S) 2 tab PO BID PRN PRN Reason: Constipation Sodium Chloride (Flush - Normal Saline) [address] [facility] Last Admin: 02/15/19 20:30 Dose: 10 ml Sodium Chloride (Flush - Normal Saline) 10 ml IVF PRN PRN PRN Reason: Saline Flush Tramadol HCl (Ultram) 50 mg PO Q6H PRN PRN Reason: Moderate Pain (4-6)
[2019-02-16] MEDS: Levothyroxine Sodium 25 MCG TAB PO SCH (05:46)
[2019-02-16] MEDS: Saccharomyces boulardii 250 MG CAP PO SCH (08:09)
[2019-02-16] MEDS: predniSONE 20 MG TAB PO SCH (08:09)
[2019-02-16] MEDS: Indomethacin 25 mg Capsule PO SCH (08:09)
[2019-02-16] MEDS: Amiodarone 200 MG TAB PO SCH (08:09)
[2019-02-16] MEDS: Famotidine 20 MG TAB PO SCH (08:09)
[2019-02-16] MEDS: Aspirin 81 mg Enteric Coated Tablet PO SCH (08:10)
[2019-02-16 11:39] VITALS: BP 128/86; TEMP 98.2
--- NOTE | 2019-02-16 19:10 | DIS ---
DATE OF ADMISSION: 02/09/2019 DATE OF DISCHARGE: 02/16/2019 PRIMARY CARE PROVIDER: Patti Fisher. DISCHARGE DIAGNOSES: 1. 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 2. Non-ST elevation myocardial infarction type 2. 3. Hyponatremia. 4. Atrial fibrillation. CONDITION OF PATIENT ON THE DAY OF DISCHARGE: Stable. I assessed Mr. Daryl Gutierrez on the day of discharge. He denies any chest pain or shortness of breath. Vital signs are stable. S1 and S2 are heard, regular. Lungs are clear to auscultation bilaterally. DISCHARGE MEDICATIONS: 1. Tylenol No. 3 p.r.n. 2. Levothyroxine 25 mcg daily. 3. Amiodarone 400 mg 2 times a day for 10 more days, then 200 mg 2 times a day for 14 days, then to be stopped. . 4. Indomethacin 25 mg 2 times a day. 5. Protonix 40 mg daily. 6. Prednisone taper over one month. CONSULTATIONS DURING THIS HOSPITALIZATION: 1. Cardiology, Dr. Whitfield. 2. Cardiovascular surgery, Dr. Levy. 3. Pulmonology, Dr. Craig. HOSPITAL COURSE: Mr. Daryl gutierrez is a pleasant 58-year-old gentleman, who was admitted to [facility] on February 09, 2019, for respiratory distress secondary to pleural and bilateral pericardial effusions. Please refer to Dr. Vásquez's history and physical note dated February 10, 2019, for further details. A 2D echocardiogram showed moderate pericardial effusion. Left ventricular ejection fraction was 50% to 55%. On February 10, he underwent a pericardial window with biopsy. The pericardial biopsy pathology showed acute inflammation with fibrinoid necrosis, markedly reactive mesothelial change. No malignancy was identified. Fluid analysis from the pericardium showed predominant lymphocytosis. He also underwent a left-sided thoracentesis on February 13, 2019. Pleural fluid did not show any malignant cells. He had predominantly benign mesothelial cells. He was also found to have runs of atrial fibrillation. He was loaded with amiodarone. In terms of other labs, he had a positive YOLIE screen. He also had positive SS-A/Ro IgG antibody and SS-B/La IgG antibody. Rheumatoid factor IgA, rheumatoid factor IgM, cyclic citrullinated peptide immunoglobulin G, Elena-1 immunoglobulin G antibody, Levy immunoglobulin G antibody, [employer] immunoglobulin G antibody, Scl-70 immunoglobulin G antibody, anti double stranded DNA immunoglobulin G antibody, anti-U1RNP immunoglobulin G antibody and anticentromere immunoglobulin G antibody were all negative. He will need followup with horse stud manager. He has been advised to seek referral for a rheumatology followup through his primary care provider, since we were unable to get in touch with Rheumatology service at a different hospital to arrange for followup. His HIV 1 and 2 antigen and antibodies were nonreactive during this hospitalization. He improved clinically. He is being discharged to home in a stable condition. He has been advised to follow up with his primary care provider in 3 days time. He will need to be referred to a horse stud manager as soon as possible for further characterization of the underlying rheumatologic processes and to initiate appropriate treatment as necessary. He had a normal TSH during this hospitalization. LDH was elevated at 236 on February 10, but normalized to 171 on February 14. C-reactive protein was elevated at 19.88 during this hospitalization. Creatinine was normal during this hospitalization. Many thanks for allowing me to participate in your patient's care. Please feel free to contact me with any questions or concerns. DISCHARGE DESTINATION: Home. TOTAL AMOUNT OF TIME SPENT COORDINATING THIS DISCHARGE: 32 minutes. Job ID: [id number]
== END 2019-02-16 13:43 | disposition home or self-care (01) | DRG 270 ==
LOC: ERS 22:15 → IMCU/EMU 22:25 → 2NO 02-12 08:12
PROVIDERS: ADMIT Internal Medicine; ATTEND Internal Medicine
PROC: 0W9D0ZZ Drainage of Pericardial Cavity, Open Approach (ICD-10-PCS; principal; 2019-02-10)
PROC: 02BN0ZX Excision of Pericardium, Open Approach, Diagnostic (ICD-10-PCS; 2019-02-10)
PROC: 0W9B3ZZ Drainage of Left Pleural Cavity, Percutaneous Approach (ICD-10-PCS; 2019-02-13)
DX: I31.3 Pericardial effusion (noninflammatory) (principal); I21.4 Non-ST elevation (NSTEMI) myocardial infarction; J96.01 Acute respiratory failure with hypoxia; E87.1 Hypo-osmolality and hyponatremia; J90 Pleural effusion, not elsewhere classified; R65.10 Systemic inflammatory response syndrome (SIRS) of non-infectious origin without acute organ dysfunction; E03.9 Hypothyroidism, unspecified; K44.9 Diaphragmatic hernia without obstruction or gangrene; G89.4 Chronic pain syndrome; I12.9 Hypertensive chronic kidney disease with stage 1 through stage 4 chronic kidney disease, or unspecified chronic kidney disease; N18.2 Chronic kidney disease, stage 2 (mild); Z96.651 Presence of right artificial knee joint; I48.91 Unspecified atrial fibrillation; E66.9 Obesity, unspecified; Z68.31 Body mass index [BMI] 31.0-31.9, adult; Z87.891 Personal history of nicotine dependence; Z90.89 Acquired absence of other organs; Z79.899 Other long term (current) drug therapy
CPT/HCPCS: 36415; 71045; 71046; 71275; 80048; 80053; 80202; 81003; 81015; 82150; 82550; 82553; 82945; 83520; 83615; 83735; 83880; 83930; 83935; 83986; 84157; 84300; 84443; 84478; 84484; 85025; 85060; 85379; 85610; 85652; 86038; 86140; 86200; 86225; 86235; 87040; 87070; 87116; 87205; 87206; 87389; 88112; 88305; 88312; 88341; 88342; 89051; 93005; 93306; 94640; 94760; 96365; 96367; 96375; J0282; J0670; J0690; J0692; J0696; J1885; J1940; J2001; J2704; J2930; J3010; J3370; J3490; J7050; J7070; J7512; J7620; Q9966

== ENCOUNTER 2019-06-03 11:20 | Outpatient (CLI) | payer OTHER ==
--- NOTE | 2019-06-03 11:47 | RAD ---
2 VIEW CHEST: Date: 06/03/19 INDICATION: Dyspnea, cough, shortness of breath. COMPARISON: 02/13/19. FINDINGS: The pleural effusions noted previously have resolved with no significant effusion seen today. No infi ltrate or vascular congestion. Heart size upper normal and stable. IMPRESSION: Improvement in the chest from prior study. No effusion or infiltrate apparent on today's exam. POS: OFF
== END 2019-06-03 11:21 | disposition home or self-care (01) ==
LOC: RAD 11:20
PROVIDERS: ATTEND Internal Medicine
DX: R06.00 Dyspnea, unspecified (principal)
CPT/HCPCS: 71046

== ENCOUNTER 2022-02-28 09:25 | Emergency (ER) | payer OTHER ==
[2022-02-28] MEDS ORDERED: Boostrix 0.5 ML (Tdap) VIAL ONE (10:03)
== END 2022-02-28 10:54 | disposition home or self-care (01) ==
LOC: ERS 09:25
DX: L03.113 Cellulitis of right upper limb (principal); E03.9 Hypothyroidism, unspecified; F17.210 Nicotine dependence, cigarettes, uncomplicated; J45.909 Unspecified asthma, uncomplicated; M19.90 Unspecified osteoarthritis, unspecified site; Z23 Encounter for immunization; Z79.899 Other long term (current) drug therapy
CPT/HCPCS: 90471; 90715

== ENCOUNTER 2022-07-13 10:09 | Outpatient (CLI) | payer OTHER | END 2022-07-13 10:10 | disposition home or self-care (01) | LOC: BICRAD 10:09 | PROVIDERS: ATTEND Family Medicine | DX: M25.562 Pain in left knee (principal); M25.551 Pain in right hip; M25.552 Pain in left hip; M16.0 Bilateral primary osteoarthritis of hip ==

== ENCOUNTER 2022-11-02 13:22 | Inpatient (IN) | payer OTHER ==
[2022-11-02 14:07] LABS: #Eosinphils 0.1 thou/uL (0.0-0.7); #Lymphocytes 1.2 thou/uL (1.20-3.40); #Monocytes 0.8 thou/uL (0.11-0.59); #Neutrophils 8.1 thou/uL (1.40-6.50); %Basophils 0.3 % (0.0-1.0); %Eosinophils 1.4 % (0.0-10.0); %Lymphocytes 11.8 % (21.0-51.0); %Monocytes 7.4 % (0.0-10.0); %Neutrophils 79.1 % (42.0-75.0); Hemoglobin 13.9 g/dL (14.0-18.0); Mean Corpuscular HGB CONC 33.3 g/dL (32.0-36.0); Mean Corpuscular Hemoglobin 30.9 pg (27.0-31.0); Mean Corpuscular Volume 92.6 fl (78.0-98.0); Mean Platelet Volume 8.6 fL (7.4-10.4); Platelet Count 184 10x3/uL (130-400); RBC Distribution Width 12.3 % (11.5-14.5); Red Blood Cell (RBC) Count 4.51 mill/uL (4.70-6.10); White Blood Cell (WBC) Count 10.3 10x3/uL (4.8-10.8)
[2022-11-02] MEDS ORDERED: Ipratropium/Albuterol 3 ML NEB ONE (14:19)
[2022-11-02 14:29] LABS: ALT (SGPT) 15 U/L (8-55); AST (SGOT) 18 U/L (5-34); Albumin 3.5 g/dL (3.4-4.8); Alkaline Phosphatase 73 U/L (40-110); Anion Gap 12 mmol/L (10-20); BUN (Urea Nitrogen) 11 mg/dL (8.4-25.7); Bilirubin, Total 0.8 mg/dL (0.2-1.2); Calc. Creatinine Clearance 0 mL/min (70-130); Calcium 8.9 mg/dL (7.8-10.44); Carbon Dioxide 21 mmol/L (23-31); Chloride 102 mmol/L (98-107); Estimated GFR 78; Globulin 3.8 g/dL (2.4-3.5); Glucose 87 mg/dL (80-115); Potassium 4.2 mmol/L (3.5-5.1); Protein, Total 7.3 g/dL (5.8-8.1); Sodium 131 mmol/L (136-145)
[2022-11-02] MEDS ORDERED: Furosemide 40 MG/4 ML VIAL ONE (14:41)
[2022-11-02] MEDS ORDERED: Iopamidol-370 76% 500 ML 1 ML ONE (14:58)
[2022-11-02 15:24] LABS: Bilirubin Negative (Negative); Blood, Urine Trace (Negative); Glucose, Urine (Dipstick) Negative (Negative); Ketone, Urine 15 mg/dL (Negative); Leukocyte Large (Negative); Nitrite Negative (Negative); Protein, Urine (Dipstick) Trace mg/dL (Neg-Trace); Specific Gravity, Urine 1.015 (1.005-1.030); Urobilinogen 0.2 mg/dL (Less than 2)
[2022-11-02 15:29] LABS: Clarity Cloudy (Clear)
[2022-11-02] MEDS ORDERED: cefTRIAXone\\ROCEPHIN 1 GM VIAL ONE (15:37)
[2022-11-02 15:40] LABS: Bacteria/HPF 2+ HPF (None Seen); Transitional Epithelial 0-3 HPF (None Seen); WBC/HPF Greater than 50 HPF (0-3)
[2022-11-02 15:48] LABS: SARS-CoV-2 NAA Rapid Test Not Detected (NotDetected)
[2022-11-02] MEDS ORDERED: Calcium Carbonate 500 MG ChewTAB PO PRN (15:54)
[2022-11-02] MEDS ORDERED: Ondansetron PF 4 MG/2 ML Vial IVP PRN (15:54)
[2022-11-02] MEDS ORDERED: Acetaminophen 325 MG TAB PO PRN (15:54)
[2022-11-02] MEDS ORDERED: Senokot S 8.6-50 MG TAB PO PRN (15:54)
[2022-11-02] MEDS ORDERED: Ipratropium/Albuterol 3 ML NEB NEB PRN (16:06)
[2022-11-02] MEDS ORDERED: hydrALAZINE 20 MG/ML VIAL SLOW IVP PRN (16:31)
[2022-11-02 18:38] VITALS: BMI 30.6
[2022-11-02] MEDS ORDERED: Furosemide 40 MG/4 ML VIAL SLOW IVP SCH (18:45)
[2022-11-02] MEDS: Metoprolol Tartrate 25 MG TAB PO SCH (19:47)
[2022-11-02] MEDS: Tamsulosin HCl 0.4 MG CAP PO SCH (19:47)
[2022-11-02] MEDS ORDERED: Amiodarone 200 MG TAB PO SCH (21:00)
[2022-11-03 05:07] LABS: #Basophils 0.1 thou/uL (0.0-0.2); #Eosinphils 0.1 thou/uL (0.0-0.7); #Lymphocytes 2.1 thou/uL (1.20-3.40); #Monocytes 0.9 thou/uL (0.11-0.59); #Neutrophils 5.9 thou/uL (1.40-6.50); %Basophils 0.6 % (0.0-1.0); %Eosinophils 1.1 % (0.0-10.0); %Lymphocytes 23.6 % (21.0-51.0); %Monocytes 9.6 % (0.0-10.0); %Neutrophils 65.2 % (42.0-75.0); Mean Corpuscular HGB CONC 33.7 g/dL (32.0-36.0); Mean Corpuscular Hemoglobin 30.7 pg (27.0-31.0); Mean Corpuscular Volume 90.9 fl (78.0-98.0); Mean Platelet Volume 8.6 fL (7.4-10.4); Platelet Count 169 10x3/uL (130-400); RBC Distribution Width 12.3 % (11.5-14.5); Red Blood Cell (RBC) Count 4.55 mill/uL (4.70-6.10); White Blood Cell (WBC) Count 9.1 10x3/uL (4.8-10.8)
[2022-11-03 05:13] LABS: Hemoglobin A1c 5.3 % (4.0-6.0)
[2022-11-03 05:31] LABS: ALT (SGPT) 13 U/L (8-55); AST (SGOT) 16 U/L (5-34); Albumin 3.6 g/dL (3.4-4.8); Alkaline Phosphatase 71 U/L (40-110); Anion Gap 14 mmol/L (10-20); BUN (Urea Nitrogen) 15 mg/dL (8.4-25.7); Bilirubin, Total 0.4 mg/dL (0.2-1.2); Calc. Creatinine Clearance 108 mL/min (70-130); Calcium 9.1 mg/dL (7.8-10.44); Carbon Dioxide 25 mmol/L (23-31); Cardiac Risk 4.8 (Less than 4.5); Chloride 100 mmol/L (98-107); Cholesterol 129 mg/dl (< 200 Desired); Estimated GFR 84; Globulin 3.8 g/dL (2.4-3.5); Glucose 84 mg/dL (80-115); HDL Cholesterol 27 mg/dL (>60 Neg Risk); LDL Cholesterol, Calculated 87 mg/dL; Potassium 3.7 mmol/L (3.5-5.1); Protein, Total 7.4 g/dL (5.8-8.1); Sodium 135 mmol/L (136-145); Triglycerides 74 mg/dL (Less than 150)
[2022-11-03] MEDS: Levothyroxine Sodium 25 MCG TAB PO SCH (06:04)
[2022-11-03] MEDS: Furosemide 20 MG/2 ML VIAL SLOW IVP SCH ×2 (06:04→13:51)
[2022-11-03] MEDS: Aspirin 81 mg Enteric Coated Tablet PO SCH (09:11)
[2022-11-03] MEDS: Metoprolol Tartrate 25 MG TAB PO SCH ×2 (09:11→20:17)
[2022-11-03] MEDS: Nicotine 21 MG PATCH TD SCH (09:12)
[2022-11-03] MEDS ORDERED: cefTRIAXone\\ROCEPHIN 1 GM in Sodium Chloride 0.9% 100 ML IVPB SCH (16:00)
[2022-11-03] MEDS: Tamsulosin HCl 0.4 MG CAP PO SCH (20:17)
[2022-11-03] MEDS ORDERED: Atorvastatin Calcium 20 MG TAB PO SCH (21:00)
[2022-11-04 05:21] LABS: Anion Gap 15 mmol/L (10-20); BUN (Urea Nitrogen) 21 mg/dL (8.4-25.7); Calc. Creatinine Clearance 116 mL/min (70-130); Calcium 9.2 mg/dL (7.8-10.44); Carbon Dioxide 21 mmol/L (23-31); Chloride 104 mmol/L (98-107); Estimated GFR 91; Glucose 90 mg/dL (80-115); Potassium 4.2 mmol/L (3.5-5.1); Sodium 136 mmol/L (136-145)
[2022-11-04] MEDS: Furosemide 20 MG/2 ML VIAL SLOW IVP SCH ×2 (05:28→05:33)
[2022-11-04] MEDS: Levothyroxine Sodium 25 MCG TAB PO SCH (05:28)
[2022-11-04] MEDS: Nicotine 21 MG PATCH TD SCH (09:21)
[2022-11-04] MEDS: Aspirin 81 mg Enteric Coated Tablet PO SCH (09:21)
[2022-11-04] MEDS: Metoprolol Tartrate 25 MG TAB PO SCH (09:22)
[2022-11-04 12:30] VITALS: BP 117/71; TEMP 97.5
[2022-11-04] MEDS ORDERED: Furosemide 40 MG TAB PO SCH (14:00)
== END 2022-11-04 14:45 | disposition home or self-care (01) | DRG 291 ==
LOC: SUATTDRO 13:22 → ERS 13:22 → 2SW 17:37 → OBSVTOIN 11-04 10:54
PROVIDERS: ADMIT Internal Medicine; ATTEND Internal Medicine
DX: I11.0 Hypertensive heart disease with heart failure (principal); I50.41 Acute combined systolic (congestive) and diastolic (congestive) heart failure; N39.0 Urinary tract infection, site not specified; Z20.822 Contact with and (suspected) exposure to COVID-19; F17.210 Nicotine dependence, cigarettes, uncomplicated; J43.9 Emphysema, unspecified; E78.5 Hyperlipidemia, unspecified; I48.91 Unspecified atrial fibrillation; E03.9 Hypothyroidism, unspecified; I25.10 Atherosclerotic heart disease of native coronary artery without angina pectoris; E78.00 Pure hypercholesterolemia, unspecified; Z79.899 Other long term (current) drug therapy; Z79.82 Long term (current) use of aspirin; Z79.52 Long term (current) use of systemic steroids; Z79.890 Hormone replacement therapy
CPT/HCPCS: 36415; 51798; 71045; 71275; 80048; 80053; 80061; 81003; 81015; 83036; 83605; 83735; 83880; 84484; 85025; 85379; 87086; 93005; 93306; 96372; 96374; 96376; G0378; J0696; J1650; J1940; J3490; J7611; J7620; Q9967; U0002

== ENCOUNTER 2023-01-19 11:01 | Inpatient (IN) | payer OTHER ==
[2023-01-19 12:28] LABS: #Eosinphils 0.1 thou/uL (0.0-0.7); #Lymphocytes 1.4 thou/uL (1.20-3.40); #Neutrophils 12.4 thou/uL (1.40-6.50); %Basophils 0.3 % (0.0-1.0); %Eosinophils 0.6 % (0.0-10.0); %Lymphocytes 9.3 % (21.0-51.0); %Monocytes 6.7 % (0.0-10.0); %Neutrophils 83.1 % (42.0-75.0); Hemoglobin 14.7 g/dL (14.0-18.0); Mean Corpuscular HGB CONC 31.9 g/dL (32.0-36.0); Mean Corpuscular Hemoglobin 29.5 pg (27.0-31.0); Mean Corpuscular Volume 92.5 fl (78.0-98.0); Mean Platelet Volume 8.7 fL (7.4-10.4); Platelet Count 211 10x3/uL (130-400); RBC Distribution Width 12.9 % (11.5-14.5); Red Blood Cell (RBC) Count 4.97 mill/uL (4.70-6.10); White Blood Cell (WBC) Count 14.9 10x3/uL (4.8-10.8)
[2023-01-19] MEDS ORDERED: Lidocaine 1% w/Epinephrine 1:100K 20 ML VIAL ONE (12:39)
[2023-01-19] MEDS ORDERED: Lidocaine 1% PF 5 ML VIAL ONE (12:39)
[2023-01-19 12:51] LABS: ALT (SGPT) 19 U/L (8-55); AST (SGOT) 14 U/L (5-34); Albumin 4.2 g/dL (3.4-4.8); Alkaline Phosphatase 86 U/L (40-110); Anion Gap 11 mmol/L (10-20); BUN (Urea Nitrogen) 13 mg/dL (8.4-25.7); Bilirubin, Total 0.7 mg/dL (0.2-1.2); Calc. Creatinine Clearance 0 mL/min (70-130); Calcium 9.4 mg/dL (7.8-10.44); Carbon Dioxide 28 mmol/L (23-31); Chloride 103 mmol/L (98-107); Estimated GFR 86; Globulin 3.9 g/dL (2.4-3.5); Glucose 105 mg/dL (80-115); Potassium 4.4 mmol/L (3.5-5.1); Protein, Total 8.1 g/dL (5.8-8.1); Sodium 138 mmol/L (136-145)
[2023-01-19 13:04] LABS: Bilirubin Negative (Negative); Blood, Urine Negative (Negative); Clarity Clear (Clear); Glucose, Urine (Dipstick) Normal (Negative); Ketone, Urine Negative (Negative); Leukocyte 500 Leu/uL (Negative); Nitrite Negative (Negative); Protein, Urine (Dipstick) 10 mg/dL (Neg-Trace); RBC/HPF 0-3 HPF (0-3); Specific Gravity, Urine 1.022 (1.002-1.036); Squamous Epithelial 0-3 HPF (0-3); Urobilinogen Normal mg/dL (Less than 2); WBC/HPF Greater than 50 HPF (0-3); pH, Urine 6.5 (5.0-9.0)
[2023-01-19 13:07] LABS: Bacteria/HPF 1+ HPF (None Seen)
[2023-01-19] MEDS ORDERED: Morphine 4 MG/ML VIAL ONE (13:34)
[2023-01-19] MEDS ORDERED: Cefepime 2 GM VIAL ONE (13:35)
[2023-01-19] MEDS ORDERED: Ondansetron PF 4 MG/2 ML Vial ONE (13:35)
[2023-01-19] MEDS ORDERED: Vancomycin 1 GM/200 ML (FROZEN) BAG ONE (13:39)
[2023-01-19] MEDS ORDERED: Ipratropium/Albuterol 3 ML NEB NEB PRN (18:46)
[2023-01-19] MEDS ORDERED: VANCO/CEFEPIME IVPB PRN (18:46)
[2023-01-19] MEDS ORDERED: Ondansetron ODT 4 MG TAB PO PRN (18:48)
[2023-01-19] MEDS ORDERED: Calcium Carbonate 500 MG ChewTAB PO PRN (18:48)
[2023-01-19] MEDS ORDERED: Ondansetron PF 4 MG/2 ML Vial IVP PRN (18:48)
[2023-01-19] MEDS ORDERED: Acetaminophen 325 MG TAB PO PRN (18:48)
[2023-01-19] MEDS ORDERED: hydrALAZINE 20 MG/ML VIAL SLOW IVP PRN (18:50)
[2023-01-19] MEDS ORDERED: Electrolyte Replacement Protocol FS PRN (19:00)
[2023-01-19] MEDS ORDERED: Electrolyte Replacement Protocol 1 EACH FS SCH (19:00)
[2023-01-19] MEDS ORDERED: Vancomycin 1 GM in Premix Bag 1 BAG IVPB SCH (19:00)
[2023-01-19] MEDS ORDERED: Vancomycin HCl 500 MG in Sodium Chloride 0.9% 100 ML IVPB SCH (19:15)
[2023-01-19 19:35] VITALS: BMI 34.2
[2023-01-19] MEDS: Ketorolac Tromethamine 30 MG/ML VIAL IVP SCH (20:04)
[2023-01-19] MEDS: Famotidine 20 MG TAB PO SCH (20:05)
[2023-01-19] MEDS: Senokot S 8.6-50 MG TAB PO SCH (20:05)
[2023-01-19] MEDS ORDERED: Metoprolol Tartrate 25 MG TAB PO SCH (22:00)
[2023-01-20] MEDS: Ketorolac Tromethamine 30 MG/ML VIAL IVP SCH ×4 (02:36→20:13)
[2023-01-20] MEDS: Cefepime 2 GM in Sodium Chloride 0.9% 100 ML IVPB SCH ×2 (02:37→14:45)
[2023-01-20] MEDS: Vancomycin 1.5 GRAM/300 ML BAG 1.5 GM in Premix Bag 1 BAG IVPB SCH ×2 (03:28→15:00)
[2023-01-20 07:40] LABS: Mean Corpuscular HGB CONC 34.4 g/dL (32.0-36.0); Mean Corpuscular Hemoglobin 32.1 pg (27.0-31.0); Mean Corpuscular Volume 93.4 fl (78.0-98.0); Mean Platelet Volume 8.9 fL (7.4-10.4); Platelet Count 169 10x3/uL (130-400); RBC Distribution Width 12.8 % (11.5-14.5); Red Blood Cell (RBC) Count 4.06 mill/uL (4.70-6.10); White Blood Cell (WBC) Count 19.7 10x3/uL (4.8-10.8)
[2023-01-20 07:54] LABS: Anion Gap 14 mmol/L (10-20); BUN (Urea Nitrogen) 21 mg/dL (8.4-25.7); Calc. Creatinine Clearance 104 mL/min (70-130); Calcium 8.3 mg/dL (7.8-10.44); Carbon Dioxide 23 mmol/L (23-31); Chloride 103 mmol/L (98-107); Estimated GFR 72; Glucose 92 mg/dL (80-115); Potassium 3.9 mmol/L (3.5-5.1); Sodium 136 mmol/L (136-145)
[2023-01-20] MEDS ORDERED: Albuterol 200 PUFF (6.7GM INHALER) INH PRN (08:17)
[2023-01-20] MEDS: Levothyroxine Sodium 25 MCG TAB PO SCH (08:59)
[2023-01-20] MEDS: Saccharomyces boulardii 250 MG CAP PO SCH (09:00)
[2023-01-20] MEDS: Senokot S 8.6-50 MG TAB PO SCH ×2 (09:00→20:16)
[2023-01-20] MEDS: Metoprolol Tartrate 25 MG TAB PO SCH ×2 (09:00→20:16)
[2023-01-20] MEDS: Aspirin 81 mg Enteric Coated Tablet PO SCH ×2 (09:00→09:08)
[2023-01-20] MEDS: Famotidine 20 MG TAB PO SCH ×2 (09:00→20:15)
[2023-01-20] MEDS: Furosemide 40 MG TAB PO SCH (09:00)
[2023-01-20] MEDS ORDERED: Metoprolol Tartrate 25 MG TAB PO SCH (09:00)
[2023-01-20 10:37] LABS: Band 4 % (5-11); Eosinophils 2 % (0-10); Lymphocytes 10 % (21-51); MDiff Complete? YES; Monocytes 14 % (0-10); Neutrophil 69 % (42-75); Platelet Morphology Comment Appears Adequate; Toxic Granulation SLIGHT; Vacuoles SLIGHT
[2023-01-20] MEDS ORDERED: Iopamidol-370 76% 500 ML MDV (1 ML CHARGE) ONE (11:45)
[2023-01-20] MEDS: Atorvastatin Calcium 20 MG TAB PO SCH (20:15)
[2023-01-20] MEDS: Gabapentin 100 MG CAP PO SCH (20:15)
[2023-01-21] MEDS ORDERED: Calcium Carbonate 500 MG ChewTAB PO SCH (01:30)
[2023-01-21] MEDS: Cefepime 2 GM in Sodium Chloride 0.9% 100 ML IVPB SCH ×2 (01:55→14:50)
[2023-01-21 02:07] LABS: Mean Corpuscular Volume 91.8 fl (78.0-98.0); Mean Platelet Volume 8.6 fL (7.4-10.4); Platelet Count 162 10x3/uL (130-400); RBC Distribution Width 12.6 % (11.5-14.5); Red Blood Cell (RBC) Count 3.93 mill/uL (4.70-6.10); White Blood Cell (WBC) Count 16.7 10x3/uL (4.8-10.8)
[2023-01-21 02:20] LABS: Vancomycin, Trough 13.5 ug/mL
[2023-01-21 02:26] LABS: Band 7 % (5-11); Lymphocytes 7 % (21-51); MDiff Complete? YES; Monocytes 8 % (0-10); Neutrophil 78 % (42-75); Platelet Morphology Comment Appears Adequate; RBC Morphology Normal
[2023-01-21 02:42] LABS: Anion Gap 14 mmol/L (10-20); BUN (Urea Nitrogen) 24 mg/dL (8.4-25.7); Calc. Creatinine Clearance 116 mL/min (70-130); Calcium 8.2 mg/dL (7.8-10.44); Carbon Dioxide 21 mmol/L (23-31); Chloride 104 mmol/L (98-107); Estimated GFR 82; Glucose 106 mg/dL (80-115); Potassium 3.8 mmol/L (3.5-5.1); Sodium 135 mmol/L (136-145)
[2023-01-21] MEDS: Vancomycin 1.5 GRAM/300 ML BAG 1.5 GM in Premix Bag 1 BAG IVPB SCH ×2 (03:16→16:08)
[2023-01-21] MEDS: Levothyroxine Sodium 25 MCG TAB PO SCH (06:02)
[2023-01-21] MEDS: Senokot S 8.6-50 MG TAB PO SCH ×2 (08:31→20:34)
[2023-01-21] MEDS: Furosemide 40 MG TAB PO SCH (08:31)
[2023-01-21] MEDS: Tamsulosin HCl 0.4 MG CAP PO SCH (08:31)
[2023-01-21] MEDS: Metoprolol Tartrate 25 MG TAB PO SCH ×2 (08:31→20:33)
[2023-01-21] MEDS: Famotidine 20 MG TAB PO SCH ×2 (08:31→20:34)
[2023-01-21] MEDS: Aspirin 81 mg Enteric Coated Tablet PO SCH (08:31)
[2023-01-21] MEDS: Saccharomyces boulardii 250 MG CAP PO SCH (08:31)
[2023-01-21] MEDS ORDERED: Ketorolac Tromethamine 30 MG/ML VIAL IVP PRN (12:03)
[2023-01-21] MEDS: Atorvastatin Calcium 20 MG TAB PO SCH (20:34)
[2023-01-21] MEDS: Gabapentin 100 MG CAP PO SCH (20:34)
[2023-01-22] MEDS: Cefepime 2 GM in Sodium Chloride 0.9% 100 ML IVPB SCH (02:16)
[2023-01-22] MEDS: Vancomycin 1.5 GRAM/300 ML BAG 1.5 GM in Premix Bag 1 BAG IVPB SCH (02:58)
[2023-01-22] MEDS: Levothyroxine Sodium 25 MCG TAB PO SCH (05:28)
[2023-01-22 06:57] LABS: #Eosinphils 0.2 thou/uL (0.0-0.7); #Lymphocytes 1.6 thou/uL (1.20-3.40); #Monocytes 1.2 thou/uL (0.11-0.59); #Neutrophils 8.4 thou/uL (1.40-6.50); %Basophils 0.3 % (0.0-1.0); %Eosinophils 1.6 % (0.0-10.0); %Lymphocytes 14.1 % (21.0-51.0); %Monocytes 10.4 % (0.0-10.0); %Neutrophils 73.5 % (42.0-75.0); Hemoglobin 12.5 g/dL (14.0-18.0); Mean Corpuscular Volume 91.1 fl (78.0-98.0); Platelet Count 170 10x3/uL (130-400); RBC Distribution Width 12.5 % (11.5-14.5); Red Blood Cell (RBC) Count 4.03 mill/uL (4.70-6.10); White Blood Cell (WBC) Count 11.4 10x3/uL (4.8-10.8)
[2023-01-22 07:13] LABS: Anion Gap 13 mmol/L (10-20); BUN (Urea Nitrogen) 21 mg/dL (8.4-25.7); Calc. Creatinine Clearance 102 mL/min (70-130); Calcium 8.3 mg/dL (7.8-10.44); Carbon Dioxide 23 mmol/L (23-31); Chloride 106 mmol/L (98-107); Estimated GFR 70; Glucose 104 mg/dL (80-115); Potassium 3.4 mmol/L (3.5-5.1); Sodium 139 mmol/L (136-145)
[2023-01-22] MEDS ORDERED: Potassium Chloride 20 MEQ TAB PO SCH ×2 (08:00→08:45)
[2023-01-22] MEDS: Polyethylene Glycol 3350 17 GM Packet PER TUBE SCH (08:56)
[2023-01-22] MEDS: Metoprolol Tartrate 25 MG TAB PO SCH ×2 (08:57→20:24)
[2023-01-22] MEDS: Senokot S 8.6-50 MG TAB PO SCH ×2 (08:57→20:24)
[2023-01-22] MEDS: Tamsulosin HCl 0.4 MG CAP PO SCH (08:57)
[2023-01-22] MEDS: Saccharomyces boulardii 250 MG CAP PO SCH (08:58)
[2023-01-22] MEDS: Aspirin 81 mg Enteric Coated Tablet PO SCH (08:58)
[2023-01-22] MEDS: Furosemide 20 MG TAB PO SCH (08:58)
[2023-01-22] MEDS: Famotidine 20 MG TAB PO SCH ×2 (09:00→20:24)
[2023-01-22] MEDS: Atorvastatin Calcium 20 MG TAB PO SCH (20:24)
[2023-01-22] MEDS: Gabapentin 100 MG CAP PO SCH (20:24)
[2023-01-23] MEDS: Levothyroxine Sodium 25 MCG TAB PO SCH (05:50)
[2023-01-23 07:39] LABS: #Eosinphils 0.1 thou/uL (0.0-0.7); #Lymphocytes 1.5 thou/uL (1.20-3.40); #Monocytes 1.5 thou/uL (0.11-0.59); #Neutrophils 8.6 thou/uL (1.40-6.50); %Basophils 0.1 % (0.0-1.0); %Eosinophils 1.3 % (0.0-10.0); %Lymphocytes 12.4 % (21.0-51.0); %Monocytes 12.9 % (0.0-10.0); %Neutrophils 73.3 % (42.0-75.0); Hemoglobin 13.1 g/dL (14.0-18.0); Mean Corpuscular HGB CONC 33.7 g/dL (32.0-36.0); Mean Corpuscular Hemoglobin 30.5 pg (27.0-31.0); Mean Corpuscular Volume 90.4 fl (78.0-98.0); Mean Platelet Volume 8.7 fL (7.4-10.4); Platelet Count 186 10x3/uL (130-400); RBC Distribution Width 12.3 % (11.5-14.5); Red Blood Cell (RBC) Count 4.28 mill/uL (4.70-6.10); White Blood Cell (WBC) Count 11.7 10x3/uL (4.8-10.8)
[2023-01-23 08:00] LABS: Anion Gap 16 mmol/L (10-20); BUN (Urea Nitrogen) 23 mg/dL (8.4-25.7); Calc. Creatinine Clearance 77 mL/min (70-130); Calcium 8.4 mg/dL (7.8-10.44); Carbon Dioxide 21 mmol/L (23-31); Chloride 105 mmol/L (98-107); Estimated GFR 50; Glucose 91 mg/dL (80-115); Potassium 3.8 mmol/L (3.5-5.1); Sodium 138 mmol/L (136-145)
[2023-01-23] MEDS: Saccharomyces boulardii 250 MG CAP PO SCH (08:13)
[2023-01-23] MEDS: Senokot S 8.6-50 MG TAB PO SCH ×2 (08:13→20:50)
[2023-01-23] MEDS: Polyethylene Glycol 3350 17 GM Packet PER TUBE SCH (08:13)
[2023-01-23] MEDS: Famotidine 20 MG TAB PO SCH ×2 (08:13→20:49)
[2023-01-23] MEDS: Aspirin 81 mg Enteric Coated Tablet PO SCH (08:13)
[2023-01-23] MEDS: Furosemide 20 MG TAB PO SCH (08:13)
[2023-01-23] MEDS: Tamsulosin HCl 0.4 MG CAP PO SCH (08:14)
[2023-01-23] MEDS: Metoprolol Tartrate 25 MG TAB PO SCH ×2 (08:14→20:49)
[2023-01-23] MEDS ORDERED: Metoprolol Tartrate 5 MG/5 ML VIAL IVP SCH (09:40)
[2023-01-23] MEDS ORDERED: Potassium Chloride 20 MEQ TAB PO SCH (09:45)
[2023-01-23 10:23] LABS: Magnesium 2.1 mg/dL (1.6-2.6); Phosphorus 3.1 mg/dL (2.3-4.7)
[2023-01-23] MEDS: Diltiazem 125 MG in Sodium Chloride 0.9% 100 ML IVPB SCH ×2 (10:35→23:02)
[2023-01-23 11:04] LABS: Troponin I 0.044 ng/mL (< 0.028)
[2023-01-23] MEDS: cefTRIAXone\\ROCEPHIN 2 GM in Sodium Chloride 0.9% 100 ML IVPB SCH (14:07)
[2023-01-23] MEDS: Amiodarone 200 MG TAB PO SCH ×2 (14:07→20:49)
[2023-01-23] MEDS: Atorvastatin Calcium 20 MG TAB PO SCH (20:49)
[2023-01-23] MEDS: Gabapentin 100 MG CAP PO SCH (20:49)
[2023-01-24 05:09] LABS: #Eosinphils 0.1 thou/uL (0.0-0.7); #Lymphocytes 1.3 thou/uL (1.20-3.40); #Monocytes 1.3 thou/uL (0.11-0.59); #Neutrophils 7.7 thou/uL (1.40-6.50); %Basophils 0.2 % (0.0-1.0); %Eosinophils 1.1 % (0.0-10.0); %Lymphocytes 12.4 % (21.0-51.0); %Monocytes 12.1 % (0.0-10.0); %Neutrophils 74.1 % (42.0-75.0); Hemoglobin 12.2 g/dL (14.0-18.0); Mean Corpuscular HGB CONC 35.9 g/dL (32.0-36.0); Mean Corpuscular Hemoglobin 32.5 pg (27.0-31.0); Mean Corpuscular Volume 90.7 fl (78.0-98.0); Mean Platelet Volume 10.5 fL (7.4-10.4); Platelet Count 137 10x3/uL (130-400); RBC Distribution Width 12.5 % (11.5-14.5); Red Blood Cell (RBC) Count 3.74 mill/uL (4.70-6.10); White Blood Cell (WBC) Count 10.4 10x3/uL (4.8-10.8)
[2023-01-24] MEDS: Levothyroxine Sodium 25 MCG TAB PO SCH (06:03)
[2023-01-24] MEDS: Saccharomyces boulardii 250 MG CAP PO SCH (08:32)
[2023-01-24] MEDS: Tamsulosin HCl 0.4 MG CAP PO SCH (08:32)
[2023-01-24] MEDS: Aspirin 81 mg Enteric Coated Tablet PO SCH (08:32)
[2023-01-24] MEDS: Senokot S 8.6-50 MG TAB PO SCH ×2 (08:32→21:36)
[2023-01-24] MEDS: Amiodarone 200 MG TAB PO SCH ×3 (08:32→21:37)
[2023-01-24] MEDS: Metoprolol Tartrate 25 MG TAB PO SCH ×2 (08:32→21:36)
[2023-01-24] MEDS: Famotidine 20 MG TAB PO SCH (08:32)
[2023-01-24] MEDS: Polyethylene Glycol 3350 17 GM Packet PER TUBE SCH (08:33)
[2023-01-24 10:07] LABS: Chloride 104 mmol/L (98-107); Potassium 3.9 mmol/L (3.5-5.1); Sodium 136 mmol/L (136-145)
[2023-01-24 10:08] LABS: Calcium 8.2 mg/dL (7.8-10.44); Glucose 106 mg/dL (80-115)
[2023-01-24 10:10] LABS: Anion Gap 15 mmol/L (10-20); Carbon Dioxide 21 mmol/L (23-31)
[2023-01-24 10:13] LABS: BUN (Urea Nitrogen) 36 mg/dL (8.4-25.7)
[2023-01-24 10:16] LABS: Calc. Creatinine Clearance 49 mL/min (70-130); Estimated GFR 30
[2023-01-24] MEDS: cefTRIAXone\\ROCEPHIN 2 GM in Sodium Chloride 0.9% 100 ML IVPB SCH (11:52)
[2023-01-24] MEDS: Diltiazem 125 MG in Sodium Chloride 0.9% 100 ML IVPB SCH (11:52)
[2023-01-24] MEDS: Sodium Chloride 0.9% 1,000 ML IV SCH (16:28)
[2023-01-24] MEDS ORDERED: Enoxaparin 120 MG/0.8 ML SYRINGE SC SCH (21:00)
[2023-01-24] MEDS: Gabapentin 100 MG CAP PO SCH (21:36)
[2023-01-24] MEDS: Atorvastatin Calcium 20 MG TAB PO SCH (21:36)
[2023-01-24] MEDS: Apixaban 5 MG TAB PO SCH (21:36)
[2023-01-25 04:22] LABS: #Eosinphils 0.2 thou/uL (0.0-0.7); #Lymphocytes 1.3 thou/uL (1.20-3.40); #Monocytes 1.1 thou/uL (0.11-0.59); #Neutrophils 6.5 thou/uL (1.40-6.50); %Basophils 0.3 % (0.0-1.0); %Eosinophils 2.1 % (0.0-10.0); %Lymphocytes 14.1 % (21.0-51.0); %Monocytes 11.9 % (0.0-10.0); %Neutrophils 71.7 % (42.0-75.0); Hemoglobin 11.8 g/dL (14.0-18.0); Mean Corpuscular HGB CONC 34.3 g/dL (32.0-36.0); Mean Corpuscular Hemoglobin 31.3 pg (27.0-31.0); Mean Corpuscular Volume 91.2 fl (78.0-98.0); Mean Platelet Volume 8.8 fL (7.4-10.4); Platelet Count 183 10x3/uL (130-400); RBC Distribution Width 12.3 % (11.5-14.5); Red Blood Cell (RBC) Count 3.77 mill/uL (4.70-6.10); White Blood Cell (WBC) Count 9.1 10x3/uL (4.8-10.8)
[2023-01-25 04:36] LABS: Anion Gap 13 mmol/L (10-20); BUN (Urea Nitrogen) 38 mg/dL (8.4-25.7); Calc. Creatinine Clearance 56 mL/min (70-130); Calcium 7.9 mg/dL (7.8-10.44); Carbon Dioxide 23 mmol/L (23-31); Chloride 108 mmol/L (98-107); Estimated GFR 35; Glucose 99 mg/dL (80-115); Sodium 140 mmol/L (136-145)
[2023-01-25] MEDS: Sodium Chloride 0.9% 1,000 ML IV SCH ×2 (04:48→20:40)
[2023-01-25] MEDS: Levothyroxine Sodium 25 MCG TAB PO SCH (04:48)
[2023-01-25] MEDS: Polyethylene Glycol 3350 17 GM Packet PER TUBE SCH (10:33)
[2023-01-25] MEDS: Senokot S 8.6-50 MG TAB PO SCH ×2 (10:33→20:41)
[2023-01-25] MEDS: Aspirin 81 mg Enteric Coated Tablet PO SCH (10:33)
[2023-01-25] MEDS: Tamsulosin HCl 0.4 MG CAP PO SCH (10:34)
[2023-01-25] MEDS: Amiodarone 200 MG TAB PO SCH ×3 (10:34→20:41)
[2023-01-25] MEDS: Saccharomyces boulardii 250 MG CAP PO SCH (10:34)
[2023-01-25] MEDS: Metoprolol Tartrate 25 MG TAB PO SCH ×2 (10:34→20:41)
[2023-01-25] MEDS: Apixaban 5 MG TAB PO SCH ×2 (10:35→20:41)
[2023-01-25] MEDS ORDERED: Digoxin 0.5 MG/2 ML AMP SLOW IVP SCH (11:30)
[2023-01-25] MEDS: cefTRIAXone\\ROCEPHIN 2 GM in Sodium Chloride 0.9% 100 ML IVPB SCH (12:10)
[2023-01-25] MEDS: Cefdinir 300 MG CAP PO SCH (20:41)
[2023-01-25] MEDS: Gabapentin 100 MG CAP PO SCH (20:41)
[2023-01-25] MEDS: Atorvastatin Calcium 20 MG TAB PO SCH (20:41)
[2023-01-26 04:13] VITALS: TEMP 97.3
[2023-01-26 04:20] LABS: Anion Gap 13 mmol/L (10-20); BUN (Urea Nitrogen) 28 mg/dL (8.4-25.7); Calc. Creatinine Clearance 65 mL/min (70-130); Calcium 8.1 mg/dL (7.8-10.44); Carbon Dioxide 22 mmol/L (23-31); Chloride 110 mmol/L (98-107); Estimated GFR 42; Glucose 97 mg/dL (80-115); Potassium 4.3 mmol/L (3.5-5.1); Sodium 141 mmol/L (136-145)
[2023-01-26] MEDS: Levothyroxine Sodium 25 MCG TAB PO SCH (05:27)
[2023-01-26 07:31] VITALS: BP 147/85
[2023-01-26] MEDS: Aspirin 81 mg Enteric Coated Tablet PO SCH (08:44)
[2023-01-26] MEDS: Cefdinir 300 MG CAP PO SCH (08:44)
[2023-01-26] MEDS: Amiodarone 200 MG TAB PO SCH (08:44)
[2023-01-26] MEDS: Apixaban 5 MG TAB PO SCH (08:44)
[2023-01-26] MEDS: Senokot S 8.6-50 MG TAB PO SCH (08:44)
[2023-01-26] MEDS: Metoprolol Tartrate 25 MG TAB PO SCH (08:45)
[2023-01-26] MEDS: Tamsulosin HCl 0.4 MG CAP PO SCH (08:45)
[2023-01-26] MEDS: Saccharomyces boulardii 250 MG CAP PO SCH (08:45)
[2023-01-26] MEDS: Polyethylene Glycol 3350 17 GM Packet PER TUBE SCH (08:45)
[2023-01-26] MEDS: Sodium Chloride 0.9% 1,000 ML IV SCH (08:45)
== END 2023-01-26 11:30 | disposition home or self-care (01) | DRG 854 ==
LOC: ERS 11:01 → T4-B 18:33 → 2NO 01-23 08:54
PROVIDERS: ADMIT Internal Medicine; ATTEND Family Medicine
PROC: 0V950ZZ Drainage of Scrotum, Open Approach (ICD-10-PCS; principal; 2023-01-19)
PROC: 3E03329 Introduction of Other Anti-infective into Peripheral Vein, Percutaneous Approach (ICD-10-PCS; 2023-01-19)
DX: A41.01 Sepsis due to Methicillin susceptible Staphylococcus aureus (principal); I48.92 Unspecified atrial flutter; L02.214 Cutaneous abscess of groin; Z16.20 Resistance to unspecified antibiotic; N17.9 Acute kidney failure, unspecified; I50.42 Chronic combined systolic (congestive) and diastolic (congestive) heart failure; M19.90 Unspecified osteoarthritis, unspecified site; E03.9 Hypothyroidism, unspecified; I48.91 Unspecified atrial fibrillation; Z96.651 Presence of right artificial knee joint; E78.5 Hyperlipidemia, unspecified; J43.9 Emphysema, unspecified; Z96.653 Presence of artificial knee joint, bilateral; N45.3 Epididymo-orchitis; I11.0 Hypertensive heart disease with heart failure; N40.1 Benign prostatic hyperplasia with lower urinary tract symptoms; Z90.49 Acquired absence of other specified parts of digestive tract; Z98.890 Other specified postprocedural states; Z87.891 Personal history of nicotine dependence; Z79.51 Long term (current) use of inhaled steroids; Z79.82 Long term (current) use of aspirin; Z79.899 Other long term (current) drug therapy; Z91.148 Patient's other noncompliance with medication regimen for other reason
CPT/HCPCS: 36415; 71045; 72194; 76770; 76870; 80048; 80053; 80202; 81003; 81015; 83605; 83735; 83880; 84100; 84443; 84484; 85025; 85652; 86140; 87040; 87070; 87077; 87086; 87186; 87205; 93005; 93010; 93976; 94640; 96365; 96375; J0692; J0696; J1650; J1885; J1956; J2270; J2405; J3370; J3370-JW; J3490; J7050; J7620; Q9967